=== PATIENT | male | born 1975 | race Caucasian/White ===

== ENCOUNTER 2017-01-14 10:31 | Inpatient (IN) ==
[2017-01-14] MEDS ORDERED: SODIUM CHLORIDE 0.9% 500 ML IV STA (11:00)
[2017-01-14] MEDS ORDERED: DIPH/TET/ACEL PERT BOOSTER VACCINE 0.5 ML VIAL IM ONE ×2 (11:00→11:10)
[2017-01-14] MEDS ORDERED: ceFAZolin 1,000 MG VIAL ONE (11:10)
[2017-01-14 11:33] LABS: Basophils # 0.1 10*3/uL (0.0-0.2); Basophils % 0.3 % (0.0-0.8); Eosinophils # 0.3 10*3/uL (0.0-0.87); Eosinophils % 1.8 % (0.00-10.9); Hemoglobin 13.2 GM/DL (14.0-18.0); Immature Granulocytes % 0.3 %; Immature Granulocytes Absolute 0.05 #; Lymphocytes # 1.5 10*3/uL (1.4-4.0); Lymphocytes % 10.2 % (21.2-54.2); Mean Corpuscular HGB Conc 31.4 GM/DL (32-36); Mean Corpuscular Hemoglobin 26 PG (27-34); Mean Corpuscular Volume 83.2 FL (87-102); Mean Platelet Volume 12.6 FL (9.6-12.0); Monocytes # 1.3 10*3/uL (0.11-0.8); Monocytes % 8.9 % (1.7-12.7); Neutrophils # 11.7 10*3/uL (1.4-7.4); Neutrophils % 78.5 % (38.7-73.9); Platelet Count 323 T/CUMM (130-400); Red Blood Count 5.05 MC/CUMM (3.8-5.5); Red Cell Distribution Width 16.2 % (9.3-17.3); White Blood Count 14.9 T/CUMM (4-12)
--- NOTE | 2017-01-14 11:48 | CT Report ---
Exam: CT scan of brain without contrast Date: 01/14/2017 Indication: Head injury status post fall Comparison: 12/03/2015 Patient's classification: Emergency upon Technical: Images were obtained from the skull base to the vertex without the use of intravenous contrast. Dose reduction was performed with decreasing kv and mA and automated exposure Total DLP: 1081.1 mGy*cm Findings: Minimal small vessel changes are present in the periventricular subcortical white matter regions suspected. There is slight asymmetry of the left sylvian fissure. The ventricles are otherwise unremarkable. Paranasal sinuses globes and sella are intact. The mastoids are unremarkable. There is calcification in the pineal gland present. The calvarium is intact. Impression: 1. Minimal asymmetric left sylvian fissure and possible component of mild atrophic changes 2. No acute hemorrhage infarction or mass effect PROCEDURE INTERPRETED AT [facility] DEPARTMENT OF RADIOLOGY Final Report Signed by: Dr. Ankur Esteban
--- NOTE | 2017-01-14 11:48 | CT Report ---
Exam: CT cervical spine without IV contrast Clinical History: 41 year-old male post fall with neck pain Technique: Axial computed tomography images of the cervical spine without intravenous contrast. Comparison: No relevant prior studies available. Findings: Vertebra: Cervical alignment is anatomic. The vertebral body heights are maintained with no evidence of fracture. Disc/spinal Canal/neural foramina: Disc spaces are well-maintained. Minimal facet arthrosis within the mid to lower cervical spine. No central stenosis Soft tissues: Unremarkable Thyroid: Symmetric in size and attenuation Lung apices: Well aerated Impression: 1. No evidence of injury to the cervical spine. PROCEDURE INTERPRETED AT [facility] DEPARTMENT OF RADIOLOGY Final Report Signed by: Scott Sim
--- NOTE | 2017-01-14 11:49 | XRay Report ---
Exam: XR chest 1V portable Date: 01/14/2017 11:01 AM Indication: Shortness of breath Comparison: 07/29/2016 Technical: AP Findings: Mild prominence the cardiac silhouette. Some minimal interstitial thickening the perihilar regions and slight coarse bronchovascular markings on the left as compared to the right. No obvious consolidations or effusions. Mediastinum is otherwise demonstrated with small calcified nodes. Impression: 1. Mid inspiratory chest with mild interstitial thickening without consolidating infiltrates or effusions PROCEDURE INTERPRETED AT [facility] DEPARTMENT OF RADIOLOGY Final Report Signed by: Dr. Ankur Esteban
--- NOTE | 2017-01-14 11:52 | Emergency Department Note ---
IJosiah Emily, am scribing for, and in the presence of, Fabian Rubalcava MD 11: 04. Khadar Mcfarlane Charles R, MD, personally performed the services described in this documentation, ascribed by Kathleen Rahman in my presence, and it is both accurate and complete . Arrival - Arrival Chief Complaint: Fall Stated Complaint: fall ED Nursing Triage Note: pt to er 06 via ems coming from [facility] with c/o having a fall on friday. pt never did get checked out from fall on friday but does have multiple abrasions noted to forehead. Mode of Arrival: Stretcher Limitations: Physical Limitation (bed bound; contractures in all extremities) Source: Family (mother) Time Seen by Provider: 01/14/17 10:43 - History of Present Illness HPI Narrative: Pt is a 41 y/o male who came from [facility] to ED with mother for further evaluation of vomiting and multiple abrasions s/p fall from 2 days ago. Mother notes fdc is unsure of how pt fell, but pt is not moving any extremity due to contractures. Mother reports pt having nml gait prior to August 2016 while he was in assisted living facility in [place], [place]. Then moved [facility] due to no movement of extremities, barely speaks, and now bed sores on buttocks and knees. Mother states she was told the fdc changes the wounds every two hours, per wound clinic. Mother denies hx of stroke or cerebral palsy. PMHx of schizophrenia, HTN, thyroid disorder. Onset (ago): day(s) Consistency: constant Severity: mild, moderate Severity scale (1-10): 4 Allergies/Adverse Reactions: Allergies Allergy/AdvReac Type Severity Reaction Status Date / Time haloperidol [From Haldol] Allergy Unknown Unknown/Unable Verified 01/14/17 10:37 to obtain [place] Allergy Unknown Unknown/Unable Verified 01/14/17 10:37 to obtain olanzapine [From Zyprexa] Allergy Unknown Unknown/Unable Verified 01/14/17 10:37 to obtain risperidone [From Risperdal] Allergy Unknown Unknown/Unable Verified 01/14/17 10 :37 to obtain ziprasidone [From Geodon] Allergy Unknown Unknown/Unable Verified 01/14/17 10:37 to obtain Home Medications: Home Medications Medication Instructions Recorded Confirmed Type Baclofen Tab [Lioresal] 20 mg PO TID 08/30/15 02/13/16 History Cholecalciferol (Vitamin D3) 2,000 unit PO DAILY 08/30/15 02/13/16 History [Vitamin D3] Docusate Sodium Cap [Colace Cap] 100 mg PO BID 08/30/15 02/13/16 History Omeprazole [Prilosec] 20 mg PO BID 08/30/15 02/13/16 History Polyethylene Glycol Powder 17 gm PO DAILY 08/30/15 02/13/16 History [Miralax] Propranolol Tab [Inderal Tab] 10 mg PO BID 08/30/15 02/13/16 History hydroCHLOROthiazide 12.5 mg PO DAILY 08/30/15 02/13/16 History [Hydrochlorothiazide] HYDROcodone/ACETAMIN 7.5-325 1 tablet PO Q6H PRN 02/13/16 02/13/16 History [[place] 7.5-325] clonazePAM TAB [KlonoPIN] 0.5 mg PO BEDTIME PRN 02/13/16 02/13/16 History clonazePAM [Klonopin] 1 mg PO QAM PRN 02/13/16 02/13/16 History Ampicillin Cap 500 mg PO TID #30 capsule 02/17/16 Rx HYDROcodone/ACETAMIN 7.5-325 1 tablet PO Q6H PRN #30 tablet 02/17/16 Rx [[place] 7.5-325] Ampicillin Cap 500 mg PO TID #30 capsule 07/29/16 Rx Levofloxacin Tab [Levaquin Tab] 750 mg PO DAILY 10 Days 01/14/17 Rx Review of System - Review of System 12 point system: reviewed and no additional remarkable complaints except as stated - Review of System Constitutional: Absent: fever Respiratory: Absent: respiratory distress Gastrointestinal: Present: vomiting Skin: Present: lesions (multiple abrasions to forehead). 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) - Surgical History Cardiac Surgeries: Patient Denies: Cardiac Catheterization HEENT Surgeries: Surgical HX of: Tonsilectomy & Adenoidectomy Abdominal Surgeries: Patient denies: Appendectomy, Cholecystectomy Orthopedic Surgeries: Patient denies;: Orthopedic Surgery - Family History Family History: noncontributory - Social History Smoking Status: Never smoker Frequency of Alcohol Use: None Type of Drug Use: None Marital Status: Single Lives With:: fdc Functional capacity: bed bound (due to contractures in all extremities) Exam Vital Signs: Vital Signs Temperature 98.6 F 01/14/17 10:32 Pulse Rate 85 01/14/17 10:32 Respiratory Rate 17 01/14/17 10:32 Blood Pressure 90/63 01/14/17 10:32 O2 Sat by Pulse Oximetry 97 01/14/17 11:23 - General General appearance: alert, in no apparent distress, other (mute) - Head Head exam: Present: atraumatic, normocephalic, other (abrasions to forehead) - Eye Eye exam: Present: PERRL, EOMI - ENT ENT exam: Present: mucous membranes moist. Absent: mucous membranes dry - Neck Neck exam: Present: trachea midline - Chest Chest inspection: Present: symmetric chest wall rise - Respiratory Respiratory exam: Present: normal lung sounds bilaterally. Absent: respiratory distress - Cardiovascular Cardiovascular exam: Present: regular rate, normal rhythm, normal heart sounds - Abdominal Exam Abdominal exam: Present: soft, other (rotted peg tube). Absent: distention, tenderness - Extremities Exam Extremities exam: Absent: full ROM (contractures in all extremities), pedal edema - Neurological Exam Neurological exam: Present: CN II-XII intact, other (non verbal). Absent: normal gait - Skin Skin exam: Present: warm, dry, other (bed sores on buttocks and posterior knees) Course Course Narrative: Spoke with the mother the patient. We will send him back to fdc with some p.o. Levaquin to take. Patient has a urinary tract infection there is no traumatic injuries noted on CT head CT C-spine are negative Results - Labs CBC & BMP: 01/14/17 11:05 01/14/17 11:05 Lab Results: I have reviewed the patients labs Labs: Laboratory Tests 01/14/17 11:05 WBC 14.9 H RBC 5.05 Hgb 13.2 L Hct 42.0 MCV 83.2 L MCH 26 L MCHC 31.4 L Plt Count 323 MPV 12.6 H Neut % (Auto) 78.5 H Lymph % (Auto) 10.2 L Neut # (Auto) 11.7 H Love # (Auto) 1.3 H Laboratory Tests 01/14/17 01/14/17 11:05 12:17 BUN 29 H Creatinine 0.50 L BUN/Creatinine Ratio 58.00 H Magnesium 2.5 H Albumin 3.1 L Globulin 4.4 H Albumin/Globulin Ratio 0.7 L Amylase 21 L Lipase 142.0 Urine Color [place]han Urine Appearance Cloudy Urine pH 6.0 Ur Specific [place] 1.017 Urine Protein 30 Urine Nitrate Positive H Urine Urobilinogen 4.0 H Urine Leukocytes Large H Urine RBC 28 Urine WBC 455 Urine WBC Clumps Many Urine Bacteria Few Urine Mucus Occasional - Diagnostic Findings Procedure: Chest x-ray: report reviewed by me (Mild inspiratory chest with mild interstitial thickening without consolidating infiltrates or effusions.), CT: report reviewed by me (Cervical: No evidence of injury to the cervical spine. Head wo con: 1. Minimal asymmetric left sylvian fissure and possible component of mild atrophic changes. 2. No acute hemorrhage infarction or mass effect.) Disposition Clinical Impression: History of mechanical fall, Urinary tract infection, Debility, unspecified, Contractures involving both knees, Contracture of upper arm joint, Muscle disease Case discussed with: patient, patient's family Disposition: Disch To Home/Self Care Condition: Stable Additional Instructions: Follow-up with fdc doctor. Prescriptions: Levofloxacin Tab [Levaquin Tab] 750 mg PO DAILY 10 Days Time of Disposition: 13:01 Contact your physician if you experience:: fever over 101, Difficulty voiding, Redness or swelling, Nausea/Vomiting, Shortness of breath, Bleeding, pain uncontrolled by pain medications, Other Return to the Emergency Department if:: fever over 101, Difficulty voiding, Redness or swelling, Nausea/Vomiting, Shortness of breath, Bleeding, pain uncontrolled by pain medications, Other
[2017-01-14 12:04] LABS: Albumin 3.1 G/DL (3.4-5.0); Bilirubin,Total 0.8 MG/DL (0.2-1.0); Magnesium 2.5 MG/DL (1.8-2.4); Osmolality,Calculated 281.5 MOS/KG (273-304); Potassium 4.6 MMOL/L (3.5-5.1); Total Protein 7.5 G/DL (6.4-8.3)
[2017-01-14 12:30] LABS: Apearance,Urine CLOUDY (Clear); Bacteria,Urine Few /HPF (Few); Bilirubin,Urine Negative (Negative); Blood, Urine Negative (Negative); Glucose,Urine (UA) Negative (Negative); Ketones,Urine Negative (Negative); Mucus,Urine Occasional /LPF (Occasional); Nitrite,Urine Positive (Negative); Protein,Urine 30 MG/DL; RBC,Urine 28 /HPF (0-4); Urine Color Amber (Yellow); Urine Specific Gravity 1.017 (1.001-1.035); WBC,Urine 455 /HPF (0-6)
[2017-01-14] MEDS ORDERED: LEVOFLOXACIN INJ 750 MG in PREMIX 1 EACH IV STA (12:52)
[2017-01-14] MEDS ORDERED: LEVOFLOXACIN INJ 150 ML IV ONE (12:58)
[2017-01-14] MEDS ORDERED: ONDANSETRON 4 MG/2 ML VIAL IV STA (13:33)
[2017-01-14] MEDS ORDERED: ONDANSETRON 4 MG/2 ML VIAL ONE (13:35)
--- NOTE | 2017-01-14 14:32 | Hospitalist History & Physical ---
Assessment and Plan - Time spent with patient Time spent with patient: Greater than 30 minutes (1) Urinary tract infection Status: Acute Assessment and plan: Admit 01/14/17 on monitor Start IV hydration Start Antibiotics (UTI) repeat a.m. labs PRN antiemetics Urine culture is ordered will consult wound care evaluation Will discuss with Dr Ackerman for further recommendations with care. Current Visit: Yes (2) Contracture of upper arm joint Status: Acute Current Visit: Yes (3) Contractures involving both knees Status: Acute Current Visit: Yes (4) Altered mental status Status: Acute Current Visit: No History of Present Illness Chief complaint: n/v and UTI History of present illness: Mr. Zuñiga is a 41 year old white male w/PMHx of [place], hypertension, schizophrenia, thyroid disorder, and all extremities contracted presented to the ED via EMS from [facility] for further evaluation of nausea, vomiting this a.m. and s/p fell out of bed 2 days ago. Patient is MUTE and mother (Soo) at bedside and was able to answer some questions but for the most part a poor historian. She reports patient has been at [facility] since last August. She is unsure what happened to cause him to not speak at all and became weak in all his extremities and is now bed bound and contracted in all extremities. She denies that he had a stroke, or seizures prior to moving him to the shelter. Patient is in contracted state and she reports the staff were unsure how the patient fell from the bed. He has multiple abrasions to forehead. He has bed sores to buttocks and knees and had wound care at the [facility]. [place] ED: Cervical CT Spine: no evidence of injury to the cervical spine. CXR: mid inspiratory chest with mild interstitial thickening without consolidating infiltrates or effusions. Head CT : minimal asymmetric left sylvian fissure and possibel component of mild atrophic changes, no acute hemorrhage infarction or mass. LABS: WBC 14.9, BUN 29, Creatinine 0.50, Magnesium 2.5. Urinalysis: positive for UTI: positive nitrates, large leukocytes, WBC 455, with many clumps. Patient is bed bound: contractures to all extremities PCP: Practitioner at [facility] After discussion with Dr Rubalcava in the ED and Dr Meka with Hospitalist Services, it was agreed to admit patient for further evaluation of nausea/ vomiting and urinary tract infection. Home Medications Medication Instructions Recorded Confirmed Type Baclofen Tab [Lioresal] 20 mg PO TID 08/30/15 01/14/17 History Cholecalciferol (Vitamin D3) 2,000 unit PO DAILY 08/30/15 01/14/17 History [Vitamin D3] Polyethylene Glycol Powder 17 gm PO DAILY PRN 08/30/15 01/14/17 History [Miralax] Propranolol Tab [Inderal Tab] 10 mg PO BID 08/30/15 01/14/17 History hydroCHLOROthiazide 12.5 mg PO DAILY 08/30/15 01/14/17 History [Hydrochlorothiazide] clonazePAM TAB [KlonoPIN] 0.5 mg PO BEDTIME PRN 02/13/16 01/14/17 History clonazePAM [Klonopin] 1 mg PO QAM 02/13/16 01/14/17 History Acetaminophen Supp [Tylenol Supp] 650 mg RECTAL Q4H PRN MDD 3GM/24H 01/14/1709/25 History Clotrimazole/Betameth Cream 1 applic TOP BID PRN 01/14/17 01/14/17 History [Lotrisone Cream] Docusate Sodium Liquid [Colace 100 mg PO BID 01/14/17 01/14/17 History Liquid] Esomeprazole Magnesium 20 mg PO 0600 01/14/17 01/14/17 History [Esomeprazole] HYDROcodone/ACETAMIN 7.5-325 1 tablet PEG Q6H PRN 01/14/17 01/14/17 History [[place] 7.5-325] Levofloxacin Tab [Levaquin Tab] 750 mg PO DAILY 10 Days 01/14/17 Rx Loperamide Cap [Imodium Cap] 2 mg PEG Q2HR PRN MDD 16MG/24H 01/14/17 01/14/17 History Ondansetron Tab [Zofran Tab] 4 mg PO Q8H PRN 01/14/17 01/14/17 History Allergies Allergy/AdvReac Type Severity Reaction Status Date / Time haloperidol [From Haldol] Allergy Unknown Unknown/Unable Verified 01/14/17 10:37 to obtain [place] Allergy Unknown Unknown/Unable Verified 01/14/17 10:37 to obtain olanzapine [From Zyprexa] Allergy Unknown Unknown/Unable Verified 01/14/17 10:37 to obtain risperidone [From Risperdal] Allergy Unknown Unknown/Unable Verified 01/14/17 10 :37 to obtain ziprasidone [From Geodon] Allergy Unknown Unknown/Unable Verified 01/14/17 10:37 to obtain Medical,Surgical,& Family Hx - Medical History Cardio: History of: Hypertension Psychological: History of: Schizophrenia Endocrine: History of: Thyroid Disorder No history of: Diabetes Mellitus (IDDM) Genitourinary: No history of: Kidney Stones Musculoskeletal: History of: Musculoskeletal Problems (CONTRACTURES) Other: History of: 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) - Surgical History Cardiac Surgeries: Patient Denies: Cardiac Catheterization HEENT Surgeries: Surgical HX of: Tonsilectomy & Adenoidectomy Abdominal Surgeries: Patient denies: Appendectomy, Cholecystectomy Orthopedic Surgeries: Patient denies;: Orthopedic Surgery - Social History Smoking Status: Never smoker Frequency of Alcohol Use: None Type of Drug Use: None Marital Status: Single Lives With:: lives at [facility] Functional capacity: bed bound (contracted) ROS unobtainable: other Review of systems: Unable to assess: Patient is MUTE and will only stare when asked questions. Mother at bedside and a poor historian of symptoms of present illness. She does report the staff told her the patient fell out of the bed Friday, patient is bed bound and severely contracted, unsure how he fell from bed. Exam - Constitutional Vitals: Period Temp Pulse Resp BP Sys/Lee Pulse Ox Last 24 Hr 98.6 F-98.6 F 85-85 - 90-90/63-63 95-97 General appearance: normal weight, no acute distress - Head Head exam: Present: abrasion (to forehead (fell out of bed on Friday)) - Eye Eye exam: Present: EOMI Pupils: Present: FLAQUITO - Neck Neck exam: Present: normal inspection. Absent: thyromegaly - Respiratory Respiratory exam: Present: clear to auscultation bilaterally. Absent: wheezes - Cardiovascular Cardiovascular exam: Present: regular rate and rhythm - GI/Abdominal GI/Abdominal exam: Present: normal bowel sounds, soft. Absent: distended, tenderness - Extremities Exam Extremities exam: Present: other (contracted in all extremities). Absent: edema - Neurological Exam Neurological exam: Present: alert, other (non-verbal) - Skin Skin exam: Present: normal color, warm, abrasion (multiple abrasions r/t fell from bed on Friday at the shelter), dry Results - Labs CBC & BMP: 01/14/17 11:05 01/14/17 11:05 Lab Results: I have reviewed the past 24 hour labs - Diagnostic Findings Procedure: Chest x-ray: report reviewed by me (mid inspiratory chest with mild interstitial thickening without consolidating infiltrates or effusions), CT: report reviewed by me (cervical: negative; HeadCT: nothing acute, minimal asymmetric left sylvian fissure and possible component of mild atrophic changes)
[2017-01-14] MEDS ORDERED: CLOTRIMAZOLE/BETAMETHASONE CREAM 15 GM TUBE TOP PRN (15:50)
[2017-01-14] MEDS ORDERED: LOPERAMIDE 2 MG CAPSULE PEG PRN (15:50)
[2017-01-14] MEDS ORDERED: POLYETHYLENE GLYCOL POWDER 17 GM PACK PO PRN (15:50)
[2017-01-14] MEDS ORDERED: ONDANSETRON 4 MG/2 ML VIAL IV PRN (15:50)
--- NOTE | 2017-01-14 17:39 | Gastrointestinal Consult Note ---
Assessment and Plan (1) Dysphagia as late effect of cerebrovascular disease Status: Acute Assessment and plan: This patient has a history of severe schizophrenia and also may have a neuromuscular degenerative disorder at that resulted in contractures of all of his limbs at this point. He had an initial PEG tube placed back in August 2015 and now this PEG tube is reached the end of its functional life, as he is not on any anticoagulation will replace this afternoon n.p.o. And place a new inflatable PEG tube that can be removed/replaced more easily in the future. We will have the patient presented to the GI suite tomorrow for replacement. Current Visit: Yes (2) Attention to gastrostomy tube Status: Acute Assessment and plan: There is nothing completely wrong with this PEG tube indeed it might last for another month or 2 if left on its own however the patient is here in the hospital and we can certainly replace this proactively at this point to keep him from having to come back during weekend and late hours for replacement. He is off anticoagulation at this time and is under going treatment for his underlying urinary tract infection and decubitus ulcer treatments as well. This is a good time to optimize his feeding regimen and consider doing a repeat swallowing study to ensure that he is not having dysphagia with clear liquids being given to him presently by his mother and the staff at [facility]. Current Visit: Yes (3) Mild malnutrition Status: Acute Assessment and plan: The patient currently has an albumin of 3.1, but he still has a very low BMI and is experiencing multiple decubitus ulcers. His feeding regimen could certainly stand higher caloric intake and optimization in general. It may be worth having speech pathology and dietary consult on this patient to see if there is anything further that they wish to add at this point. If the dysphagia evaluation shows the patient does not require PEG tube support perhaps this can be removed at some point in the future, provided he is taking all of his calories, medications, and hydration orally. Current Visit: Yes History of Present Illness Chief complaint: Failing PEG tube History of present illness: Mr. Zuñiga is a 41 year old male who has a history of schizophrenia, hypertension, thyroid disorder who is new to with a mother who is at the bedside and knows that his previous PEG tube was placed in August 2015. The rubber in the PEG tube is about to fail and has routed to a significant degree as this was placed in August 2015. They are asking to be replaced with a inflatable PEG tube prior to going back to [facility]. He is now bedbound and with decubitus over multiple areas of his body. The patient 's mother states that he can drink clear liquids but has not been to undergo a swallowing study recently. This might be something to think about for reassessment during this hospitalization. The patient has urinary tract infection and needed evaluation for nausea and vomiting--although in retrospect this may certainly be due to urinary tract infection with high white blood cell count of 14.9 and possibly infection of his decubitus ulcers. It does not appear to be wincing at all on palpation of his abdomen and his PEG tube site actually looks quite good aside from a decayed rubber. Rectal exam was not performed on this patient. His hematocrit is normal at 42.0 with platelet count of 323. It is difficult to tell how much the patient comprehends as he does not react to questions even in terms of blinking or following any commands. Home Medications Medication Instructions Recorded Confirmed Type Baclofen Tab [Lioresal] 20 mg PEG TID 08/30/15 01/14/17 History Cholecalciferol (Vitamin D3) 2,000 unit PEG DAILY 08/30/15 01/14/17 History [Vitamin D3] Polyethylene Glycol Powder 17 gm PEG DAILY PRN 08/30/15 01/14/17 History [Miralax] Propranolol Tab [Inderal Tab] 10 mg PEG BID 08/30/15 01/14/17 History hydroCHLOROthiazide 12.5 mg PEG DAILY 08/30/15 01/14/17 History [Hydrochlorothiazide] clonazePAM TAB [KlonoPIN] 0.5 mg PEG BEDTIME PRN 02/13/16 01/14/17 History clonazePAM [Klonopin] 1 mg PEG QAM 02/13/16 01/14/17 History Acetaminophen Supp [Tylenol Supp] 650 mg RECTAL Q4H PRN MDD 3GM/24H 01/14/1709/25 History Clotrimazole/Betameth Cream 1 applic TOP BID PRN 01/14/17 01/14/17 History [Lotrisone Cream] Docusate Sodium Liquid [Colace 100 mg PEG BID 01/14/17 01/14/17 History Liquid] Esomeprazole Magnesium 20 mg PEG 0600 01/14/17 01/14/17 History [Esomeprazole] HYDROcodone/ACETAMIN 7.5-325 1 tablet PEG Q6H PRN 01/14/17 01/14/17 History [[place] 7.5-325] Loperamide Cap [Imodium Cap] 2 mg PEG Q2HR PRN MDD 16MG/24H 01/14/17 01/14/17 History Ondansetron Tab [Zofran Tab] 4 mg PEG Q8H PRN 01/14/17 01/14/17 History Selenium Sulfide [Selenium Sulfide 1 applic TOP DIRECTED 01/14/17 01/14/17 History 2.25% Shampoo] Allergies Allergy/AdvReac Type Severity Reaction Status Date / Time haloperidol [From Haldol] Allergy Unknown Unknown/Unable Verified 01/14/17 10:37 to obtain [place] Allergy Unknown Unknown/Unable Verified 01/14/17 10:37 to obtain olanzapine [From Zyprexa] Allergy Unknown Unknown/Unable Verified 01/14/17 10:37 to obtain risperidone [From Risperdal] Allergy Unknown Unknown/Unable Verified 01/14/17 10 :37 to obtain ziprasidone [From Geodon] Allergy Unknown Unknown/Unable Verified 01/14/17 10:37 to obtain Medical,Surgical,& Family Hx - Medical History Cardio: History of: Hypertension Psychological: History of: Schizophrenia Endocrine: History of: Thyroid Disorder No history of: Diabetes Mellitus (IDDM) Genitourinary: No history of: Kidney Stones Musculoskeletal: History of: Musculoskeletal Problems (CONTRACTURES upper and lower extremities) Other: History of: 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 His mother states that he can swallow clear liquids to some degree. Exam - Constitutional Vitals: Period Temp Pulse Resp BP Sys/Lee Pulse Ox Last 24 Hr 98.6 F-99.0 F 85-104 17-20 90-110/63-65 95-97 General appearance: mild distress - Head Head exam: Present: normocephalic - Eye Eye exam: Present: EOMI Pupils: Present: FLAQUITO - Respiratory Respiratory exam: Present: clear to auscultation bilaterally. Absent: rhonchi, stridor, wheezes - Cardiovascular Cardiovascular exam: Present: regular rate and rhythm - GI/Abdominal GI/Abdominal exam: Present: normal bowel sounds, soft, other (PEG tube site in the left upper quadrant is clean and dry with small amount of "proud flesh"/ granulation tissue at the opening of the gastrocutaneous fistula, the rubber is degraded in the tube itself but appears to be maintaining patency). Absent: guarding, tenderness - Extremities Exam Extremities exam: Present: other (Multiple decubitus noted on the patient's left side mostly on the sacrum or deep lesion is noted) - Neurological Exam Neurological exam: Present: altered (Patient is awake but noncommunicative and does not follow commands.) - Psychiatric Psychiatric exam: Present: flat affect - Skin Skin exam: Present: warm Results - Labs CBC & BMP: 01/14/17 11:05 01/14/17 11:05 Quality Measures - Stroke Symptom Onset Unknown: No
[2017-01-14] MEDS: SODIUM CHLORIDE 0.9% 1,000 ML IV SCH (17:51)
[2017-01-14] MEDS: cefTRIAXone 2,000 MG in SODIUM CHLORIDE 0.9% 100 ML IV SCH (17:52)
[2017-01-14] MEDS: BACLOFEN 20 MG TABLET PO SCH ×2 (17:55→22:07)
[2017-01-14] MEDS: ENOXAPARIN 40 MG/0.4 ML SYRINGE SUBCUT SCH (18:03)
[2017-01-14] MEDS: PROPRANOLOL 10 MG TABLET PO SCH (22:07)
[2017-01-14] MEDS: DOCUSATE SODIUM 100 MG/10 ML UDCUP PO SCH (22:08)
[2017-01-15] MEDS: SODIUM CHLORIDE 0.9% 1,000 ML IV SCH ×3 (01:51→16:21)
[2017-01-15 06:30] LABS: Albumin 2.7 G/DL (3.4-5.0); Bilirubin,Total 0.9 MG/DL (0.2-1.0); Calcium 8.6 MG/DL (8.5-10.1); Osmolality,Calculated 288.8 MOS/KG (273-304); Thyroid Stimulating Hormone 1.22 uIU/ml (0.358-3.74); Total Protein 6.5 G/DL (6.4-8.3)
[2017-01-15 07:32] LABS: Basophils % 0.4 % (0.0-0.8); Eosinophils # 0.2 10*3/uL (0.0-0.87); Eosinophils % 1.7 % (0.00-10.9); Hematocrit 38.2 VOL% (42.0-52.0); Hemoglobin 11.9 GM/DL (14.0-18.0); Immature Granulocytes % 0.4 %; Immature Granulocytes Absolute 0.04 #; Lymphocytes # 1.7 10*3/uL (1.4-4.0); Lymphocytes % 15.9 % (21.2-54.2); Mean Corpuscular HGB Conc 31.2 GM/DL (32-36); Mean Corpuscular Hemoglobin 26 PG (27-34); Mean Corpuscular Volume 84.5 FL (87-102); Mean Platelet Volume 13.1 FL (9.6-12.0); Monocytes % 9.4 % (1.7-12.7); Neutrophils # 7.8 10*3/uL (1.4-7.4); Neutrophils % 72.2 % (38.7-73.9); Platelet Count 297 T/CUMM (130-400); Red Blood Count 4.52 MC/CUMM (3.8-5.5); Red Cell Distribution Width 16.2 % (9.3-17.3); White Blood Count 10.7 T/CUMM (4-12)
--- NOTE | 2017-01-15 09:23 | Hospitalist Progress Note ---
Assessment and Plan (1) Attention to gastrostomy tube Status: Acute Assessment and plan: The patient was evaluated by GI on yesterday. We appreciate the input. We agree with the plan for G-tube placement this a.m. Current Visit: Yes (2) Urinary tract infection Status: Acute Assessment and plan: We will continue antibiotic coverage as previously ordered. We will await culture sensitivity report for further direction. Current Visit: Yes Hospitalist: Subjective Interval history: Patient seen and examined, chart reviewed. No significant overnight events reported per staff. Seen by GI on yesterday. We appreciate the input and agree with plan for G-tube placement this a.m. Exam - Constitutional Vitals: Period Temp Pulse Resp BP Sys/Lee Pulse Ox Last 24 Hr 96.8 F-99.8 F 85-117 16-22 90-144/55-82 90-97 General appearance: normal weight - Head Head exam: Present: normal inspection, normocephalic, abrasion - Eye Eye exam: Present: EOMI. Absent: conjunctival injection Pupils: Present: FLAQUITO, normal accommodation - ENT ENT exam: Present: normal exam, normal external ear exam - Neck Neck exam: Present: normal inspection. Absent: lymphadenopathy, meningismus, tenderness, thyromegaly - Respiratory Respiratory exam: Present: clear to auscultation bilaterally. Absent: rales, rhonchi, stridor, wheezes - Cardiovascular Cardiovascular exam: Present: regular rate and rhythm. Absent: carotid bruit, diastolic murmur, gallop, JVD, rubs, systolic murmur - GI/Abdominal GI/Abdominal exam: Present: normal bowel sounds, soft - Extremities Exam Extremities exam: Present: other (Contractures to bilateral upper and lower extremities) - Back Exam Back exam: Present: normal inspection - Neurological Exam Neurological exam: Present: alert, other (Nonverbal) - Psychiatric Psychiatric exam: Present: normal affect - Skin Skin exam: Present: normal color, warm, dry, other (Multiple abrasions noted to the face and head) Results - Labs CBC & BMP: 01/15/17 04:30 01/15/17 04:30 Lab Results: I have reviewed the past 24 hour labs Quality Measures - Stroke Symptom Onset Unknown: No
[2017-01-15] MEDS: ACETAMINOPHEN 650 MG SUPP RECTAL PRN ×3 (11:37→22:05)
--- NOTE | 2017-01-15 12:37 | History and Physical Update ---
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 His current tube is deteriorating externally and we are asked to replace it. His previous PEG was placed in 08/25.
--- NOTE | 2017-01-15 12:39 | Operative Note ---
Date of procedure: 01/15/17 Pre-op diagnosis: Deteriorating PEG tube Procedure: Procedure: Non-endoscopic PEG tube replacement Brief clinical abstract: Patient is a 41-year-old male with history of schizophrenia and apparent neuromuscular disease. He is unable to eat and requires PEG tube feedings for nutritional support. His PEG tube was placed in 08/25 and is deteriorating externally. Procedure findings: After informed consent was obtained from family, patient was placed in the supine position. Older PEG tube was removed with external traction without difficulty with the internal bumper intact. Cook 20 [place] replacement gastrostomy tube was then inserted through the existing gastrostomy tract. Gastric juice aspirated into the tube indicating correct placement location. 20 cc of sterile saline was injected into the internal balloon of the tube. External bumper was then applied at the skin surface at the 4 cm moses. Dressing was applied to the site afterwards. He appeared to tolerate the procedure well. Impression: Status post non-endoscopic PEG tube replacement Recommendations: May resume tube feedings as previous. Anesthesia: none Surgeon / Physician: Ankur Goldberg Estimated blood loss: minimal Specimens: none sent Condition: stable Disposition: post procedure unit Results - Labs CBC & BMP: 01/15/17 04:30 01/15/17 04:30 Discharge Plan - Discharge Medications No Action Polyethylene Glycol Powder [Miralax] 17 gm PEG DAILY PRN PRN Reason: Constipation hydroCHLOROthiazide [Hydrochlorothiazide] 12.5 mg PEG DAILY Cholecalciferol (Vitamin D3) [Vitamin D3] 2,000 unit PEG DAILY Baclofen Tab [Lioresal] 20 mg PEG TID Propranolol Tab [Inderal Tab] 10 mg PEG BID clonazePAM [Klonopin] 1 mg PEG QAM clonazePAM TAB [KlonoPIN] 0.5 mg PEG BEDTIME PRN PRN Reason: Anxiety Clotrimazole/Betameth Cream [Lotrisone Cream] 1 applic TOP BID PRN PRN Reason: RASH ON FACE Esomeprazole Magnesium [Esomeprazole] 20 mg PEG 0600 Ondansetron Tab [Zofran Tab] 4 mg PEG Q8H PRN PRN Reason: Nausea/Vomiting HYDROcodone/ACETAMIN 7.5-325 [[place] 7.5-325] 1 tablet PEG Q6H PRN PRN Reason: Pain Selenium Sulfide [Selenium Sulfide 2.25% Shampoo] 1 applic TOP DIRECTED Acetaminophen Supp [Tylenol Supp] 650 mg RECTAL Q4H PRN MDD 3GM/24H PRN Reason: Fever > 100.4 Or Headache Docusate Sodium Liquid [Colace Liquid] 100 mg PEG BID Loperamide Cap [Imodium Cap] 2 mg PEG Q2HR PRN MDD 16MG/24H PRN Reason: Diarrhea - Follow Up or Referral - Forms/Instructions
[2017-01-15] MEDS ORDERED: GLUCAGON 1 MG VIAL IM PRN (15:34)
[2017-01-15] MEDS ORDERED: DEXTROSE 50% 25 GM/50 ML SYRINGE IV PRN (15:34)
[2017-01-15] MEDS: hydroCHLOROthiazide 12.5 MG CAPSULE PO SCH (15:43)
[2017-01-15] MEDS: clonazePAM 0.5 MG TABLET PO SCH (15:43)
[2017-01-15] MEDS: PANTOPRAZOLE 40 MG TABLET PO SCH (15:43)
[2017-01-15] MEDS: CHOLECALCIFEROL 1,000 UNIT TABLET PO SCH (15:43)
[2017-01-15] MEDS: DOCUSATE SODIUM 100 MG/10 ML UDCUP PO SCH ×2 (15:43→22:05)
[2017-01-15] MEDS: PROPRANOLOL 10 MG TABLET PO SCH ×2 (15:44→22:05)
[2017-01-15] MEDS: BACLOFEN 20 MG TABLET PO SCH ×3 (15:44→22:05)
[2017-01-15] MEDS: ENOXAPARIN 40 MG/0.4 ML SYRINGE SUBCUT SCH (16:15)
[2017-01-15] MEDS: cefTRIAXone 2,000 MG in SODIUM CHLORIDE 0.9% 100 ML IV SCH (16:22)
[2017-01-15] MEDS: clonazePAM 0.5 MG TABLET PO PRN (22:05)
[2017-01-16] MEDS: SODIUM CHLORIDE 0.9% 1,000 ML IV SCH ×3 (00:57→22:30)
[2017-01-16 08:09] LABS: Basophils % 0.5 % (0.0-0.8); Eosinophils # 0.1 10*3/uL (0.0-0.87); Eosinophils % 1.6 % (0.00-10.9); Hematocrit 33.2 VOL% (42.0-52.0); Hemoglobin 10.3 GM/DL (14.0-18.0); Immature Granulocytes % 0.2 %; Immature Granulocytes Absolute 0.02 #; Lymphocytes # 1.2 10*3/uL (1.4-4.0); Lymphocytes % 14.2 % (21.2-54.2); Mean Corpuscular Hemoglobin 26 PG (27-34); Mean Corpuscular Volume 84.7 FL (87-102); Mean Platelet Volume 12.3 FL (9.6-12.0); Monocytes # 0.8 10*3/uL (0.11-0.8); Monocytes % 9.3 % (1.7-12.7); Neutrophils # 6.2 10*3/uL (1.4-7.4); Neutrophils % 74.2 % (38.7-73.9); Platelet Count 275 T/CUMM (130-400); Red Blood Count 3.92 MC/CUMM (3.8-5.5); Red Cell Distribution Width 15.9 % (9.3-17.3); White Blood Count 8.3 T/CUMM (4-12)
[2017-01-16 08:46] LABS: Albumin 2.6 G/DL (3.4-5.0); Magnesium 1.9 MG/DL (1.8-2.4); Osmolality,Calculated 289.8 MOS/KG (273-304); Potassium 3.5 MMOL/L (3.5-5.1); Total Protein 5.9 G/DL (6.4-8.3)
--- NOTE | 2017-01-16 09:12 | Gastrointestinal Progress Note ---
Assessment and Plan (1) Dysphagia as late effect of cerebrovascular disease Status: Acute Assessment and plan: 01/16-post PEG replacement on yesterday, no complications at this time. Tolerating tube feedings well. Plan an addendum to followed by Dr. Goldberg. Current Visit: Yes Gastroenterology - PN: Subj Interval history: CC: Dysphagia, PEG replacement Patient is seen, with eyes opened however does not respond verbally. Mother is at bedside. Patient underwent PEG replacement on yesterday and he tolerated this well. He does not seem to have any pain with examination and there is no redness or drainage noted at PEG tube site. Tube feedings were restarted on yesterday evening and he is tolerating this well with no reports of high residuals. Abdomen is soft, nontender. ROS: No acute distress noted Exam (Progress Note) - Constitutional Vitals: Period Temp Pulse Resp BP Sys/Lee Pulse Ox Last 24 Hr 98.3 F-100.6 F 80-132 18-20 93-135/57-079 92-96 General appearance: normal weight, no acute distress - Head Head exam: Present: normal inspection - Eye Eye exam: Present: other (Lids and conjunctive are unremarkable). Absent: scleral icterus - ENT ENT exam: Present: normal exam, normal oropharynx - Neck Neck exam: Present: normal inspection - Respiratory Respiratory exam: Present: clear to auscultation bilaterally. Absent: rales, rhonchi, wheezes - Cardiovascular Cardiovascular exam: Present: regular rate and rhythm. Absent: diastolic murmur , systolic murmur - GI/Abdominal GI/Abdominal exam: Present: normal bowel sounds, soft. Absent: ascites, distended, mass, organomegaly, tenderness - Extremities Exam Extremities exam: Present: normal inspection, full ROM - Back Exam Back exam: Present: normal inspection - Neurological Exam Neurological exam: Present: alert, altered - Psychiatric Psychiatric exam: Present: other - Skin Skin exam: Present: normal color, warm, dry Results - Labs CBC & BMP: 01/16/17 07:49 01/16/17 07:49 Lab Results: I have reviewed the past 24 hour labs
[2017-01-16] MEDS: BACLOFEN 20 MG TABLET PO SCH ×3 (09:28→22:30)
[2017-01-16] MEDS: hydroCHLOROthiazide 12.5 MG CAPSULE PO SCH (09:28)
[2017-01-16] MEDS: DOCUSATE SODIUM 100 MG/10 ML UDCUP PO SCH ×2 (09:28→22:30)
[2017-01-16] MEDS: PROPRANOLOL 10 MG TABLET PO SCH ×2 (09:28→22:30)
[2017-01-16] MEDS: PANTOPRAZOLE 40 MG TABLET PO SCH (09:28)
[2017-01-16] MEDS: CHOLECALCIFEROL 1,000 UNIT TABLET PO SCH (09:28)
[2017-01-16] MEDS: clonazePAM 0.5 MG TABLET PO SCH (09:28)
--- NOTE | 2017-01-16 09:51 | Hospitalist Progress Note ---
Assessment and Plan (1) Attention to gastrostomy tube Status: Acute Assessment and plan: The patient was evaluated by GI on yesterday. We appreciate the input. We agree with the plan for G-tube placement this a.m. 01/16-PEG tube removed on yesterday with subsequent G-tube placement. Enteral feedings have been resumed. The patient has tolerated well thus far. We will continue to monitor. Current Visit: Yes (2) Urinary tract infection Status: Acute Assessment and plan: We will continue antibiotic coverage as previously ordered. We will await culture sensitivity report for further direction. 01/16-urine culture preliminary report significant for gram-negative rods. We will await culture and sensitivity report. We will continue antibiotic coverage as previously ordered. Current Visit: Yes Hospitalist: Subjective Interval history: Patient seen and examined; chart reviewed. No significant overnight events reported. G-tube placed on yesterday per gastroenterology. Enteral feedings have been resumed. Exam - Constitutional Vitals: Period Temp Pulse Resp BP Sys/Lee Pulse Ox Last 24 Hr 98.3 F-100.6 F 80-132 18-20 93-135/57-079 92-96 General appearance: normal weight, no acute distress - Head Head exam: Present: normal inspection, normocephalic, abrasion - Eye Eye exam: Present: EOMI, conjunctival injection Pupils: Present: FLAQUITO, normal accommodation - ENT ENT exam: Present: normal exam, normal external ear exam, normal oropharynx - Neck Neck exam: Present: normal inspection. Absent: lymphadenopathy, meningismus, tenderness, thyromegaly - Respiratory Respiratory exam: Present: clear to auscultation bilaterally. Absent: rales, rhonchi, stridor, wheezes - Cardiovascular Cardiovascular exam: Present: regular rate and rhythm. Absent: carotid bruit, diastolic murmur, gallop, JVD, rubs, systolic murmur - GI/Abdominal GI/Abdominal exam: Present: normal bowel sounds, soft, other (Chest 2 patent and intact intravenous drug) - Extremities Exam Extremities exam: Present: other (Contractures noted to bilateral upper and lower extremities). Absent: full ROM (Contractions noted to bilateral upper and lower extremeties) - Back Exam Back exam: Present: normal inspection - Neurological Exam Neurological exam: Present: alert - Psychiatric Psychiatric exam: Present: normal affect - Skin Skin exam: Present: normal color, warm, dry Results - Labs CBC & BMP: 01/16/17 07:49 01/16/17 07:49 Quality Measures - Stroke Symptom Onset Unknown: No
[2017-01-16] MEDS: ENOXAPARIN 40 MG/0.4 ML SYRINGE SUBCUT SCH (17:14)
[2017-01-16] MEDS: cefTRIAXone 2,000 MG in SODIUM CHLORIDE 0.9% 100 ML IV SCH (17:14)
[2017-01-16] MEDS: clonazePAM 0.5 MG TABLET PO PRN (22:30)
[2017-01-17] MEDS: SODIUM CHLORIDE 0.9% 1,000 ML IV SCH ×4 (06:38→22:20)
[2017-01-17 06:45] LABS: Basophils % 0.6 % (0.0-0.8); Eosinophils # 0.2 10*3/uL (0.0-0.87); Eosinophils % 3.1 % (0.00-10.9); Hematocrit 35.4 VOL% (42.0-52.0); Hemoglobin 11.1 GM/DL (14.0-18.0); Immature Granulocytes % 0.2 %; Immature Granulocytes Absolute 0.01 #; Lymphocytes # 1.4 10*3/uL (1.4-4.0); Lymphocytes % 21.2 % (21.2-54.2); Mean Corpuscular HGB Conc 31.4 GM/DL (32-36); Mean Corpuscular Hemoglobin 26 PG (27-34); Mean Corpuscular Volume 83.5 FL (87-102); Mean Platelet Volume 13.1 FL (9.6-12.0); Monocytes # 0.6 10*3/uL (0.11-0.8); Monocytes % 9.5 % (1.7-12.7); Neutrophils # 4.2 10*3/uL (1.4-7.4); Neutrophils % 65.4 % (38.7-73.9); Platelet Count 290 T/CUMM (130-400); Red Blood Count 4.24 MC/CUMM (3.8-5.5); Red Cell Distribution Width 15.9 % (9.3-17.3); White Blood Count 6.4 T/CUMM (4-12)
[2017-01-17 07:27] LABS: Albumin 2.7 G/DL (3.4-5.0); Bilirubin,Total 0.4 MG/DL (0.2-1.0); Calcium 8.1 MG/DL (8.5-10.1); Magnesium 2.2 MG/DL (1.8-2.4); Phosphorous 2.8 MG/DL (2.5-4.9); Potassium 3.5 MMOL/L (3.5-5.1); Total Protein 6.2 G/DL (6.4-8.3)
[2017-01-17] MEDS: BACLOFEN 20 MG TABLET PO SCH ×3 (08:04→22:25)
[2017-01-17] MEDS: clonazePAM 0.5 MG TABLET PO SCH (08:04)
[2017-01-17] MEDS: CHOLECALCIFEROL 1,000 UNIT TABLET PO SCH (08:04)
[2017-01-17] MEDS: hydroCHLOROthiazide 12.5 MG CAPSULE PO SCH (08:04)
[2017-01-17] MEDS: PANTOPRAZOLE 40 MG TABLET PO SCH (08:04)
[2017-01-17] MEDS: PROPRANOLOL 10 MG TABLET PO SCH ×2 (08:04→22:25)
[2017-01-17] MEDS: DOCUSATE SODIUM 100 MG/10 ML UDCUP PO SCH ×2 (08:04→22:25)
--- NOTE | 2017-01-17 09:00 | Hospitalist Progress Note ---
Assessment and Plan (1) Attention to gastrostomy tube Status: Acute Assessment and plan: The patient was evaluated by GI on yesterday. We appreciate the input. We agree with the plan for G-tube placement this a.m. 01/16-PEG tube removed on yesterday with subsequent G-tube placement. Enteral feedings have been resumed. The patient has tolerated well thus far. We will continue to monitor. 01/17-Enteral feedings in progress. Current Visit: Yes (2) Urinary tract infection Status: Acute Assessment and plan: We will continue antibiotic coverage as previously ordered. We will await culture sensitivity report for further direction. 01/16-urine culture preliminary report significant for gram-negative rods. We will await culture and sensitivity report. We will continue antibiotic coverage as previously ordered. 01/17-awaiting culture and sensitivity report. We will continue antibiotic coverage as previously ordered. Current Visit: Yes Hospitalist: Subjective Interval history: Patient seen and examined; chart review. No significant overnight events reported per staff. Preliminary urine culture sensitivity significant for gram- negative rods; we will await culture sensitivity for further direction. Exam - Constitutional Vitals: Period Temp Pulse Resp BP Sys/Lee Pulse Ox Last 24 Hr 97.2 F-100.4 F 81-96 18-22 98-118/62-77 93-95 General appearance: normal weight, no acute distress - Head Head exam: Present: normocephalic, atraumatic, abrasion - Eye Eye exam: Present: EOMI, conjunctival injection Pupils: Present: FLAQUITO, normal accommodation - ENT ENT exam: Present: normal exam, normal external ear exam, normal oropharynx - Neck Neck exam: Present: normal inspection. Absent: lymphadenopathy, meningismus, thyromegaly - Respiratory Respiratory exam: Present: clear to auscultation bilaterally. Absent: rales, rhonchi, stridor, wheezes - Cardiovascular Cardiovascular exam: Present: regular rate and rhythm. Absent: carotid bruit, diastolic murmur, gallop, JVD, rubs, systolic murmur - GI/Abdominal GI/Abdominal exam: Present: normal bowel sounds, soft, other (NG tube patent and intact) - Extremities Exam Extremities exam: Present: normal capillary refill, full ROM (Bilateral upper and lower extremity contractures appreciated). Absent: edema - Back Exam Back exam: Present: normal inspection - Neurological Exam Neurological exam: Present: alert, altered, other - Psychiatric Psychiatric exam: Present: normal affect - Skin Skin exam: Present: normal color, warm, dry Results - Labs CBC & BMP: 01/17/17 05:02 01/17/17 05:02 Lab Results: I have reviewed the past 24 hour labs Quality Measures - Stroke Symptom Onset Unknown: No
[2017-01-17] MEDS: cefTRIAXone 2,000 MG in SODIUM CHLORIDE 0.9% 100 ML IV SCH (15:51)
[2017-01-17] MEDS: ENOXAPARIN 40 MG/0.4 ML SYRINGE SUBCUT SCH (15:52)
[2017-01-17] MEDS: clonazePAM 0.5 MG TABLET PO PRN (22:25)
[2017-01-17] MEDS: cefTAZidime 500 MG in SODIUM CHLORIDE 0.9% 100 ML IV SCH (22:59)
[2017-01-18 03:56] LABS: Basophils % 0.6 % (0.0-0.8); Eosinophils # 0.3 10*3/uL (0.0-0.87); Eosinophils % 4.9 % (0.00-10.9); Hematocrit 37.4 VOL% (42.0-52.0); Hemoglobin 11.5 GM/DL (14.0-18.0); Immature Granulocytes % 0.2 %; Immature Granulocytes Absolute 0.01 #; Lymphocytes # 1.7 10*3/uL (1.4-4.0); Lymphocytes % 27.1 % (21.2-54.2); Mean Corpuscular HGB Conc 30.7 GM/DL (32-36); Mean Corpuscular Hemoglobin 26 PG (27-34); Mean Corpuscular Volume 85.8 FL (87-102); Mean Platelet Volume 13.7 FL (9.6-12.0); Monocytes # 0.5 10*3/uL (0.11-0.8); Monocytes % 8.4 % (1.7-12.7); Neutrophils # 3.7 10*3/uL (1.4-7.4); Neutrophils % 58.8 % (38.7-73.9); Platelet Count 231 T/CUMM (130-400); Red Blood Count 4.36 MC/CUMM (3.8-5.5); Red Cell Distribution Width 16.2 % (9.3-17.3); White Blood Count 6.3 T/CUMM (4-12)
[2017-01-18 04:32] LABS: Albumin 2.7 G/DL (3.4-5.0); Bilirubin,Total 0.7 MG/DL (0.2-1.0); Calcium 8.2 MG/DL (8.5-10.1); Magnesium 2.3 MG/DL (1.8-2.4); Total Protein 6.2 G/DL (6.4-8.3)
[2017-01-18 04:33] LABS: Osmolality,Calculated 284.7 MOS/KG (273-304); Potassium 3.9 MMOL/L (3.5-5.1)
[2017-01-18] MEDS: cefTAZidime 500 MG in SODIUM CHLORIDE 0.9% 100 ML IV SCH ×3 (05:00→17:09)
[2017-01-18] MEDS: hydroCHLOROthiazide 12.5 MG CAPSULE PO SCH (08:09)
[2017-01-18] MEDS: CHOLECALCIFEROL 1,000 UNIT TABLET PO SCH (08:10)
[2017-01-18] MEDS: DOCUSATE SODIUM 100 MG/10 ML UDCUP PO SCH ×2 (08:10→22:38)
[2017-01-18] MEDS: clonazePAM 0.5 MG TABLET PO SCH (08:10)
[2017-01-18] MEDS: BACLOFEN 20 MG TABLET PO SCH ×3 (08:10→22:38)
[2017-01-18] MEDS: PANTOPRAZOLE 40 MG TABLET PO SCH (08:10)
[2017-01-18] MEDS: PROPRANOLOL 10 MG TABLET PO SCH ×2 (08:10→22:37)
[2017-01-18] MEDS: SODIUM CHLORIDE 0.9% 1,000 ML IV SCH ×2 (08:11→17:11)
--- NOTE | 2017-01-18 09:31 | Hospitalist Progress Note ---
Assessment and Plan (1) Attention to gastrostomy tube Status: Acute Assessment and plan: The patient was evaluated by GI on yesterday. We appreciate the input. We agree with the plan for G-tube placement this a.m. 01/16-PEG tube removed on yesterday with subsequent G-tube placement. Enteral feedings have been resumed. The patient has tolerated well thus far. We will continue to monitor. 01/17-Enteral feedings in progress. 01/18-enteral feedings and progress; the patient is tolerating without incident. Current Visit: Yes (2) Urinary tract infection Status: Acute Assessment and plan: We will continue antibiotic coverage as previously ordered. We will await culture sensitivity report for further direction. 01/16-urine culture preliminary report significant for gram-negative rods. We will await culture and sensitivity report. We will continue antibiotic coverage as previously ordered. 01/17-awaiting culture and sensitivity report. We will continue antibiotic coverage as previously ordered. 01/18-urine culture and sensitivity report obtained which were significant for Providencia stuartii. Previous antibiotic coverage discontinued. Culture and sensitivity reported susceptibility to Fortaz and Zosyn. Upon review the HELADIO was significantly higher for Zosyn; the patient was subsequently started on Fortaz 500 mg every 8 hours. We will consult infectious disease to evaluate and treat. Current Visit: Yes Hospitalist: Subjective Interval history: Patient seen and examined; chart reviewed. No significant overnight events reported per staff. Urine culture and sensitivity reported Providencia stuartii. Antibiotic coverage adjusted yesterday. Exam - Constitutional Vitals: Period Temp Pulse Resp BP Sys/Lee Pulse Ox Last 24 Hr 97.6 F-99.1 F 64-92 18-20 109-131/67-78 94-96 General appearance: normal weight, no acute distress - Head Head exam: Present: normal inspection, normocephalic, atraumatic - Eye Eye exam: Present: EOMI. Absent: conjunctival injection Pupils: Present: FLAQUITO, normal accommodation - ENT ENT exam: Present: normal exam, normal external ear exam, normal oropharynx - Neck Neck exam: Present: normal inspection. Absent: lymphadenopathy, meningismus, tenderness, thyromegaly - Respiratory Respiratory exam: Present: clear to auscultation bilaterally. Absent: rales, rhonchi, stridor, wheezes - Cardiovascular Cardiovascular exam: Present: regular rate and rhythm. Absent: carotid bruit, diastolic murmur, gallop, JVD, rubs, systolic murmur - GI/Abdominal GI/Abdominal exam: Present: normal bowel sounds, soft, other (NG tube patent and intact) - Extremities Exam Extremities exam: Present: normal capillary refill, other (Bilateral contractures noted to upper and lower extremity). Absent: full ROM ( Contractures noted bilaterally to upper and lower extremities) - Back Exam Back exam: Present: normal inspection - Neurological Exam Neurological exam: Present: alert, altered - Psychiatric Psychiatric exam: Present: normal affect - Skin Skin exam: Present: normal color, warm, abrasion Results - Labs CBC & BMP: 01/18/17 02:22 01/18/17 02:22 Lab Results: I have reviewed the past 24 hour labs Quality Measures - Stroke Symptom Onset Unknown: No
[2017-01-18] MEDS: MORPHINE 2 MG/1 ML SYRINGE IV PRN (16:24)
[2017-01-18] MEDS: ENOXAPARIN 40 MG/0.4 ML SYRINGE SUBCUT SCH (16:26)
[2017-01-18] MEDS: clonazePAM 0.5 MG TABLET PO PRN (22:37)
[2017-01-19] MEDS: SODIUM CHLORIDE 0.9% 1,000 ML IV SCH ×2 (02:02→13:06)
[2017-01-19] MEDS: cefTAZidime 500 MG in SODIUM CHLORIDE 0.9% 100 ML IV SCH ×3 (02:04→18:49)
[2017-01-19 06:31] LABS: Basophils % 0.4 % (0.0-0.8); Eosinophils # 0.3 10*3/uL (0.0-0.87); Eosinophils % 3.8 % (0.00-10.9); Hematocrit 37.2 VOL% (42.0-52.0); Immature Granulocytes % 0.3 %; Immature Granulocytes Absolute 0.03 #; Lymphocytes # 1.4 10*3/uL (1.4-4.0); Lymphocytes % 15.8 % (21.2-54.2); Mean Corpuscular HGB Conc 32.3 GM/DL (32-36); Mean Corpuscular Hemoglobin 27 PG (27-34); Mean Corpuscular Volume 82.5 FL (87-102); Mean Platelet Volume 12.4 FL (9.6-12.0); Monocytes # 0.6 10*3/uL (0.11-0.8); Monocytes % 6.8 % (1.7-12.7); Neutrophils # 6.5 10*3/uL (1.4-7.4); Neutrophils % 72.9 % (38.7-73.9); Platelet Count 305 T/CUMM (130-400); Red Blood Count 4.51 MC/CUMM (3.8-5.5); Red Cell Distribution Width 15.7 % (9.3-17.3); White Blood Count 8.9 T/CUMM (4-12)
[2017-01-19 07:02] LABS: Albumin 2.9 G/DL (3.4-5.0); Bilirubin,Total 0.7 MG/DL (0.2-1.0); Calcium 8.6 MG/DL (8.5-10.1); Magnesium 2.2 MG/DL (1.8-2.4); Osmolality,Calculated 275.5 MOS/KG (273-304); Phosphorous 2.8 MG/DL (2.5-4.9); Potassium 3.8 MMOL/L (3.5-5.1); Total Protein 6.7 G/DL (6.4-8.3)
[2017-01-19] MEDS: BACLOFEN 20 MG TABLET PO SCH ×3 (08:25→22:08)
[2017-01-19] MEDS: hydroCHLOROthiazide 12.5 MG CAPSULE PO SCH (08:25)
[2017-01-19] MEDS: DOCUSATE SODIUM 100 MG/10 ML UDCUP PO SCH ×2 (08:25→22:08)
[2017-01-19] MEDS: clonazePAM 0.5 MG TABLET PO SCH (08:25)
[2017-01-19] MEDS: CHOLECALCIFEROL 1,000 UNIT TABLET PO SCH (08:25)
[2017-01-19] MEDS: PROPRANOLOL 10 MG TABLET PO SCH ×2 (08:25→22:08)
[2017-01-19] MEDS: PANTOPRAZOLE 40 MG TABLET PO SCH (08:34)
--- NOTE | 2017-01-19 10:55 | Hospitalist Progress Note ---
Assessment and Plan (1) Attention to gastrostomy tube Status: Acute Assessment and plan: The patient was evaluated by GI on yesterday. We appreciate the input. We agree with the plan for G-tube placement this a.m. 01/16-PEG tube removed on yesterday with subsequent G-tube placement. Enteral feedings have been resumed. The patient has tolerated well thus far. We will continue to monitor. 01/17-Enteral feedings in progress. 01/18-enteral feedings and progress; the patient is tolerating without incident. 01/19-continue enteral feedings as previously ordered. Current Visit: Yes (2) Urinary tract infection Status: Acute Assessment and plan: We will continue antibiotic coverage as previously ordered. We will await culture sensitivity report for further direction. 01/16-urine culture preliminary report significant for gram-negative rods. We will await culture and sensitivity report. We will continue antibiotic coverage as previously ordered. 01/17-awaiting culture and sensitivity report. We will continue antibiotic coverage as previously ordered. 01/18-urine culture and sensitivity report obtained which were significant for Providencia stuartii. Previous antibiotic coverage discontinued. Culture and sensitivity reported susceptibility to Fortaz and Zosyn. Upon review the HELADIO was significantly higher for Zosyn; the patient was subsequently started on Fortaz 500 mg every 8 hours. We will consult infectious disease to evaluate and treat. 01/19-we will continue Fortaz as previously ordered. We will await infectious disease consultation for further recommendations. Current Visit: Yes Hospitalist: Subjective Interval history: Patient seen and examined; chart reviewed. No significant overnight events reported per staff. Awaiting infectious disease consultation in a.m. Continue Fortaz as previously ordered. Exam - Constitutional Vitals: Period Temp Pulse Resp BP Sys/Lee Pulse Ox Last 24 Hr 97.0 F-99.6 F 69-98 18-20 108-143/65-91 94-99 General appearance: normal weight, no acute distress - Head Head exam: Present: normal inspection, normocephalic, atraumatic, abrasion - Eye Eye exam: Present: EOMI, conjunctival injection Pupils: Present: FLAQUITO, normal accommodation - ENT ENT exam: Present: normal exam, normal external ear exam, normal oropharynx - Neck Neck exam: Present: normal inspection. Absent: lymphadenopathy, meningismus, tenderness, thyromegaly - Respiratory Respiratory exam: Present: clear to auscultation bilaterally. Absent: rales, rhonchi, stridor, wheezes - Cardiovascular Cardiovascular exam: Present: regular rate and rhythm. Absent: carotid bruit, diastolic murmur, gallop, JVD, rubs, systolic murmur - GI/Abdominal GI/Abdominal exam: Present: normal bowel sounds, other (PEG tube patent and intact) - Extremities Exam Extremities exam: Present: normal capillary refill, edema, other (Contractures noted to bilateral upper and lower extremeties). Absent: full ROM - Back Exam Back exam: Present: normal inspection - Neurological Exam Neurological exam: Present: alert, oriented X3, CN II-XII intact - Psychiatric Psychiatric exam: Present: normal affect, normal mood - Skin Skin exam: Present: normal color, warm, dry Results - Labs CBC & BMP: 01/19/17 06:17 01/19/17 06:17 Lab Results: I have reviewed the past 24 hour labs Quality Measures - Stroke Symptom Onset Unknown: No
[2017-01-19] MEDS: MORPHINE 2 MG/1 ML SYRINGE IV PRN ×2 (14:22→22:09)
[2017-01-19] MEDS: ENOXAPARIN 40 MG/0.4 ML SYRINGE SUBCUT SCH (17:23)
--- NOTE | 2017-01-19 18:02 | XRay Report ---
History: Shortness of breath Date: 01/19/2017 Study: Chest x-ray AP portable Comparison exam: January 14, 2017 The cardiomediastinal silhouette is unchanged. There is increased mild platelike atelectasis in the lung bases. The lungs are otherwise generally unchanged. There is no gross pleural effusion. There is moderate rotation of the patient to left. Osseous structures are similar. Impression: Increasing mild platelike atelectasis in the lung bases PROCEDURE INTERPRETED AT [facility] DEPARTMENT OF RADIOLOGY Final Report Signed by: Dr. Kaylen Goldberg
[2017-01-19] MEDS: ALBUTEROL/IPRATROPIUM 3 ML NEB RESP TX SCH (19:42)
[2017-01-19] MEDS: clonazePAM 0.5 MG TABLET PO PRN (22:08)
[2017-01-19] MEDS: POLYETHYLENE GLYCOL POWDER 17 GM PACK PO SCH (23:45)
[2017-01-20] MEDS: ALBUTEROL/IPRATROPIUM 3 ML NEB RESP TX SCH ×6 (00:05→18:30)
[2017-01-20] MEDS: cefTAZidime 500 MG in SODIUM CHLORIDE 0.9% 100 ML IV SCH ×3 (02:49→17:00)
[2017-01-20] MEDS: SODIUM CHLORIDE 0.9% 1,000 ML IV SCH ×4 (02:52→17:02)
[2017-01-20 07:08] LABS: Albumin 3.1 G/DL (3.4-5.0); Bilirubin,Total 0.6 MG/DL (0.2-1.0); Magnesium 2.3 MG/DL (1.8-2.4); Osmolality,Calculated 279.3 MOS/KG (273-304); Phosphorous 3.7 MG/DL (2.5-4.9); Potassium 3.9 MMOL/L (3.5-5.1); Total Protein 7.2 G/DL (6.4-8.3)
[2017-01-20 07:34] LABS: Basophils % 0.5 % (0.0-0.8); Eosinophils # 0.3 10*3/uL (0.0-0.87); Hematocrit 36.6 VOL% (42.0-52.0); Hemoglobin 11.9 GM/DL (14.0-18.0); Immature Granulocytes % 0.2 %; Immature Granulocytes Absolute 0.02 #; Lymphocytes # 1.3 10*3/uL (1.4-4.0); Lymphocytes % 16.2 % (21.2-54.2); Mean Corpuscular HGB Conc 32.5 GM/DL (32-36); Mean Corpuscular Hemoglobin 27 PG (27-34); Mean Corpuscular Volume 82.1 FL (87-102); Mean Platelet Volume 12.5 FL (9.6-12.0); Monocytes # 0.7 10*3/uL (0.11-0.8); Monocytes % 8.1 % (1.7-12.7); Neutrophils # 5.7 10*3/uL (1.4-7.4); Platelet Count 297 T/CUMM (130-400); Red Blood Count 4.46 MC/CUMM (3.8-5.5); Red Cell Distribution Width 15.9 % (9.3-17.3)
[2017-01-20] MEDS: BACLOFEN 20 MG TABLET PO SCH ×3 (09:43→21:47)
[2017-01-20] MEDS: DOCUSATE SODIUM 100 MG/10 ML UDCUP PO SCH ×2 (09:43→21:47)
[2017-01-20] MEDS: clonazePAM 0.5 MG TABLET PO SCH (09:43)
[2017-01-20] MEDS: PROPRANOLOL 10 MG TABLET PO SCH ×2 (09:44→21:48)
[2017-01-20] MEDS: hydroCHLOROthiazide 12.5 MG CAPSULE PO SCH (09:44)
[2017-01-20] MEDS: PANTOPRAZOLE 40 MG TABLET PO SCH (09:44)
[2017-01-20] MEDS: POLYETHYLENE GLYCOL POWDER 17 GM PACK PO SCH (09:44)
[2017-01-20] MEDS: CHOLECALCIFEROL 1,000 UNIT TABLET PO SCH (09:44)
--- NOTE | 2017-01-20 10:15 | Pulmonology Consult Note ---
Assessment and Plan (1) Atelectasis both lower lobe Status: Acute Assessment and plan: We will plan bronchoscopy in the morning. Suspect he has mucus plugging. Adding Pulmozyme. We can step up respiratory therapy or change antibiotics depending on her findings with bronchoscopy. Current Visit: Yes (2) Schizophrenia Status: Acute Assessment and plan: On multiple medications. Has very poor cough. Current Visit: Yes (3) Mental retardation Status: Acute Assessment and plan: This also affects his cough reflex and swallowing. He is on a PEG tube. Current Visit: Yes (4) Urinary tract infection Status: Acute Assessment and plan: This has been appropriately treated. Current Visit: Yes History of Present Illness Chief complaint: Atelectasis, poor cough History of present illness: Mr. Zuñiga is a 41 year old male lives at [facility] with a history of mental retardation and schizophrenia. He came in with a urinary tract infection with probable dementia. He has been treated with appropriate antibiotics. However the patient has developed a cough and congestion and has bibasilar atelectasis. I was asked to see him to help from a pulmonary standpoint. The patient has multiple allergies to psychiatric medications. He is currently getting Fortaz and nebulized bronchodilators. Please see medication list for other meds. Home Medications Medication Instructions Recorded Confirmed Type Baclofen Tab [Lioresal] 20 mg PEG TID 08/30/15 01/14/17 History Cholecalciferol (Vitamin D3) 2,000 unit PEG DAILY 08/30/15 01/14/17 History [Vitamin D3] Polyethylene Glycol Powder 17 gm PEG DAILY PRN 08/30/15 01/14/17 History [Miralax] Propranolol Tab [Inderal Tab] 10 mg PEG BID 08/30/15 01/14/17 History hydroCHLOROthiazide 12.5 mg PEG DAILY 08/30/15 01/14/17 History [Hydrochlorothiazide] clonazePAM TAB [KlonoPIN] 0.5 mg PEG BEDTIME PRN 02/13/16 01/14/17 History clonazePAM [Klonopin] 1 mg PEG QAM 02/13/16 01/14/17 History Acetaminophen Supp [Tylenol Supp] 650 mg RECTAL Q4H PRN MDD 3GM/24H 01/14/1709/25 History Clotrimazole/Betameth Cream 1 applic TOP BID PRN 01/14/17 01/14/17 History [Lotrisone Cream] Docusate Sodium Liquid [Colace 100 mg PEG BID 01/14/17 01/14/17 History Liquid] Esomeprazole Magnesium 20 mg PEG 0600 01/14/17 01/14/17 History [Esomeprazole] HYDROcodone/ACETAMIN 7.5-325 1 tablet PEG Q6H PRN 01/14/17 01/14/17 History [[place] 7.5-325] Loperamide Cap [Imodium Cap] 2 mg PEG Q2HR PRN MDD 16MG/24H 01/14/17 01/14/17 History Ondansetron Tab [Zofran Tab] 4 mg PEG Q8H PRN 01/14/17 01/14/17 History Selenium Sulfide [Selenium Sulfide 1 applic TOP DIRECTED 01/14/17 01/14/17 History 2.25% Shampoo] Allergies Allergy/AdvReac Type Severity Reaction Status Date / Time haloperidol [From Haldol] Allergy Unknown Unknown/Unable Verified 01/14/17 10:37 to obtain [place] Allergy Unknown Unknown/Unable Verified 01/14/17 10:37 to obtain olanzapine [From Zyprexa] Allergy Unknown Unknown/Unable Verified 01/14/17 10:37 to obtain risperidone [From Risperdal] Allergy Unknown Unknown/Unable Verified 01/14/17 10 :37 to obtain ziprasidone [From Geodon] Allergy Unknown Unknown/Unable Verified 01/14/17 10:37 to obtain ROS unobtainable: due to mental status Exam (Pulmonay) H&P - Constitutional Vitals: Period Temp Pulse Resp BP Sys/Lee Pulse Ox Last 24 Hr 98.1 F-99.9 F 73-110 16-22 99-132/53-82 93-99 Exam: Vital signs normal. Blood pressure 110/70. Afebrile. O2 sat in the mid 90s on room air. Pupils react to light. Poor oral hygiene. Neck is supple. Chest reveals some bilateral rhonchi. Heart normal rate and rhythm no murmurs. Abdomen soft nontender no masses. Has PEG tube in place. Remedies no clubbing cyanosis edema. Has contractures of all 4 extremities. Medical,Surgical,& Family Hx - Medical History Cardio: History of: Hypertension Psychological: History of: Schizophrenia Neurology: No history of: Seizures Endocrine: History of: Thyroid Disorder No history of: Diabetes Mellitus (IDDM) Genitourinary: No history of: Kidney Stones Musculoskeletal: History of: Musculoskeletal Problems (CONTRACTURES upper and lower extremities) Other: History of: 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) - Surgical History Cardiac Surgeries: Patient Denies: Cardiac Catheterization HEENT Surgeries: Surgical HX of: Tonsilectomy & Adenoidectomy Abdominal Surgeries: Patient denies: Appendectomy, Cholecystectomy Orthopedic Surgeries: Patient denies;: Orthopedic Surgery - Family History Family History: Reports;: Family Cancer, Family Diabetes, Family Heart Disease - Social History Smoking Status: Unknown if ever smoked Frequency of Alcohol Use: None Type of Drug Use: None Results - Labs CBC & BMP: 01/20/17 07:09 01/20/17 06:05 Lab Results: I have reviewed the past 24 hour labs - Diagnostic Findings Procedure: Chest x-ray: image reviewed by me (Platelike atelectasis in both lower lobes.) Quality Measures - Stroke Symptom Onset Unknown: No
[2017-01-20] MEDS: methylPREDNISolone SOD SUC 40 MG/1 ML VIAL IV SCH ×2 (11:15→21:48)
--- NOTE | 2017-01-20 15:01 | Infectious Disease Consult ---
Assessment and Plan (1) Urinary tract infection Status: Acute Assessment and plan: at [place] her culture from urine. Clinically the patient seems to have responded to current antibiotic therapy, ceftazidime. Recognitions: Recommend completion of 5 days of antibiotic therapy, so 2 more days to go. Thank you very much for the consult. Call again prn. Current Visit: Yes History of Present Illness Chief complaint: Positive urine culture, MDRO History of present illness: Mr. Zuñiga is a 41 year old male who is functionally quadriplegic and lives in a residential, and has chronic indwelling Crowder catheter, was sent to the hospital emergency room for CAT scan of the head after he fell 2 days prior and then was noted to be vomiting. 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 He has been on ceftazidime for the past 3 days and I am asked to assist with management. He did have low-grade fever to 100.6 on admission but has been afebrile for the past 4 days. Overall patient's mother thinks he is at baseline now. Home Medications Medication Instructions Recorded Confirmed Type Baclofen Tab [Lioresal] 20 mg PEG TID 08/30/15 01/14/17 History Cholecalciferol (Vitamin D3) 2,000 unit PEG DAILY 08/30/15 01/14/17 History [Vitamin D3] Polyethylene Glycol Powder 17 gm PEG DAILY PRN 08/30/15 01/14/17 History [Miralax] Propranolol Tab [Inderal Tab] 10 mg PEG BID 08/30/15 01/14/17 History hydroCHLOROthiazide 12.5 mg PEG DAILY 08/30/15 01/14/17 History [Hydrochlorothiazide] clonazePAM TAB [KlonoPIN] 0.5 mg PEG BEDTIME PRN 02/13/16 01/14/17 History clonazePAM [Klonopin] 1 mg PEG QAM 02/13/16 01/14/17 History Acetaminophen Supp [Tylenol Supp] 650 mg RECTAL Q4H PRN MDD 3GM/24H 01/14/1709/25 History Clotrimazole/Betameth Cream 1 applic TOP BID PRN 01/14/17 01/14/17 History [Lotrisone Cream] Docusate Sodium Liquid [Colace 100 mg PEG BID 01/14/17 01/14/17 History Liquid] Esomeprazole Magnesium 20 mg PEG 0600 01/14/17 01/14/17 History [Esomeprazole] HYDROcodone/ACETAMIN 7.5-325 1 tablet PEG Q6H PRN 01/14/17 01/14/17 History [[place] 7.5-325] Loperamide Cap [Imodium Cap] 2 mg PEG Q2HR PRN MDD 16MG/24H 01/14/17 01/14/17 History Ondansetron Tab [Zofran Tab] 4 mg PEG Q8H PRN 01/14/17 01/14/17 History Selenium Sulfide [Selenium Sulfide 1 applic TOP DIRECTED 01/14/17 01/14/17 History 2.25% Shampoo] Allergies Allergy/AdvReac Type Severity Reaction Status Date / Time haloperidol [From Haldol] Allergy Unknown Unknown/Unable Verified 01/14/17 10:37 to obtain [place] Allergy Unknown Unknown/Unable Verified 01/14/17 10:37 to obtain olanzapine [From Zyprexa] Allergy Unknown Unknown/Unable Verified 01/14/17 10:37 to obtain risperidone [From Risperdal] Allergy Unknown Unknown/Unable Verified 01/14/17 10 :37 to obtain ziprasidone [From Geodon] Allergy Unknown Unknown/Unable Verified 01/14/17 10:37 to obtain ROS unobtainable: due to mental status Medical,Surgical,& Family Hx - Medical History Cardio: History of: Hypertension Psychological: History of: Schizophrenia Neurology: No history of: Seizures Endocrine: History of: Thyroid Disorder No history of: Diabetes Mellitus (IDDM) Genitourinary: No history of: Kidney Stones Musculoskeletal: History of: Musculoskeletal Problems (CONTRACTURES upper and lower extremities) Other: History of: 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) - Surgical History Cardiac Surgeries: Patient Denies: Cardiac Catheterization HEENT Surgeries: Surgical HX of: Tonsilectomy & Adenoidectomy Abdominal Surgeries: Patient denies: Appendectomy, Cholecystectomy Orthopedic Surgeries: Patient denies;: Orthopedic Surgery - Family History Family History: Reports;: Family Cancer, Family Diabetes, Family Heart Disease - Social History Smoking Status: Unknown if ever smoked Frequency of Alcohol Use: None Type of Drug Use: None Infectious Disease Exam H&P - Constitutional Vitals: Vital Signs Temp Pulse Resp BP Pulse Ox 99.0 F 89 19 101/63 97 01/20/17 11:33 01/20/17 12:02 01/20/17 12:02 01/20/17 11:33 01/20/17 12:02 Intake and Output 01/19/17 01/20/17 01/20/17 23:59 07:59 15:59 Intake Total 1220 / 1220 820 / 820 1100 / 1100 Output Total 650 / 650 375 / 375 Balance 570 / 570 445 / 445 1100 / 1100 Intake: IV 1100 / 1100 100 / 100 1100 / 1100 Ns 1,000 ml @ 125 mls/hr 1000 / 1000 1000 / 1000 IV .Q8H ENEDINA Rx#: [id number] Fortaz 500 mg In Ns 100 100 / 100 100 / 100 100 / 100 ml @ 200 mls/hr IV Q8H ENEDINA Rx#:[id number] Tube Feeding Flush 120 / 120 720 / 720 Output: Urine 650 / 650 375 / 375 Stool 0 / 0 Other: Tube Feeding 225 Voiding Method Indwelling Catheter Indwelling Catheter # Bowel Movements 1 Exam: General: Patient relatively comfortable, he is alert but not able to communicate HEENT: Mucous membranes pink and moist, anicteric acyanotic, FLAQUITO, would not open his mouth inspection Neck: Supple, no thyroid gland enlargement Respiratory system: Breath sounds vesicular, no crepitations or wheezes Cardiovascular: Normal S1 and S2, no murmurs appreciated Abdomen: Normal bowel sounds, soft nontender throughout, no organomegaly or mass Genitourinary: No suprapubic pain or bladder distention, clear urine from Crowder catheter Extremities: no edema, all 4 limbs contracted Skin: No rash Reports - Labs CBC & BMP: 01/20/17 07:09 01/20/17 06:05 Labs: Laboratory Results - last 24 hr 01/19/17 01/19/17 01/20/17 18:35 22:13 00:30 WBC RBC Hgb Hct MCV MCH MCHC RDW Plt Count MPV Neut % (Auto) Lymph % (Auto) Atkinson % (Auto) Eos % (Auto) Baso % (Auto) Neut # (Auto) Lymph # (Auto) Atkinson # (Auto) Eos # (Auto) Baso # (Auto) Immature Gran % Nucleated RBC % Immature Gran # Nucleated RBCs # Immature Plt Fraction Sodium Potassium Chloride Carbon Dioxide Anion Gap BUN Creatinine GFR Calculation BUN/Creatinine Ratio Glucose POC Glucose 89 77 114 H Calculated Osmolality Calcium Phosphorus Magnesium Total Bilirubin AST ALT Alkaline Phosphatase Total Protein Albumin Globulin Albumin/Globulin Ratio 01/20/17 01/20/17 01/20/17 06:03 06:05 07:09 WBC 8.0 RBC 4.46 Hgb 11.9 L Hct 36.6 L MCV 82.1 L MCH 27 MCHC 32.5 RDW 15.9 Plt Count 297 MPV 12.5 H Neut % (Auto) 71.0 Lymph % (Auto) 16.2 L Atkinson % (Auto) 8.1 Eos % (Auto) 4.0 Baso % (Auto) 0.5 Neut # (Auto) 5.7 Lymph # (Auto) 1.3 L Atkinson # (Auto) 0.7 Eos # (Auto) 0.3 Baso # (Auto) 0.0 Immature Gran % 0.2 Nucleated RBC % 0.0 Immature Gran # 0.02 Nucleated RBCs # 0.00 Immature Plt Fraction 0.0 Sodium 141 Potassium 3.9 Chloride 105 Carbon Dioxide 30 Anion Gap 9.9 BUN 10 Creatinine 0.60 L GFR Calculation 132 BUN/Creatinine Ratio 16.00 Glucose 100 POC Glucose 108 H Calculated Osmolality 279.3 Calcium 9.0 Phosphorus 3.7 Magnesium 2.3 Total Bilirubin 0.60 AST 40 H ALT 73 H Alkaline Phosphatase 104 Total Protein 7.2 Albumin 3.1 L Globulin 4.1 H Albumin/Globulin Ratio 0.7 L 01/20/17 12:15 WBC RBC Hgb Hct MCV MCH MCHC RDW Plt Count MPV Neut % (Auto) Lymph % (Auto) Atkinson % (Auto) Eos % (Auto) Baso % (Auto) Neut # (Auto) Lymph # (Auto) Atkinson # (Auto) Eos # (Auto) Baso # (Auto) Immature Gran % Nucleated RBC % Immature Gran # Nucleated RBCs # Immature Plt Fraction Sodium Potassium Chloride Carbon Dioxide Anion Gap BUN Creatinine GFR Calculation BUN/Creatinine Ratio Glucose POC Glucose 104 Calculated Osmolality Calcium Phosphorus Magnesium Total Bilirubin AST ALT Alkaline Phosphatase Total Protein Albumin Globulin Albumin/Globulin Ratio
--- NOTE | 2017-01-20 16:28 | Hospitalist Progress Note ---
Hospitalist: Subjective Interval history: Patient is awake and comfortable Exam - Constitutional Vitals: Period Temp Pulse Resp BP Sys/Lee Pulse Ox Last 24 Hr 98.1 F-99.8 F 73-110 16-22 99-129/53-81 93-99 Exam: General: [No Acute Distress] HEENT: [Normocephalic, atraumatic, Extra ocular movements intact] Neck: [Supple, No JVD] Chest: [Clear to auscultation B/L] CV: [S1 + S2 audible without murmur, gallop or rub] Abd: [soft, PEG +, BS +] Ext: [No edema] Skin: [No purpura, bruising or rash] Rheumatologic: [No Joint deformities] Neurologic: [Awake alert and nonverbal] Results - Labs CBC & BMP: 01/20/17 07:09 01/20/17 06:05 - Impressions Assessment and Plan Success urinary tract infection, POA Status: Acute Assessment and plan: Continue Fortaz Current Visit: Yes Atelectasis both lower lobes Status: Acute Assessment and plan: He is on Pulmozyme. Pulmonary is planning FOB Current Visit: Yes Schizophrenia Status: Acute Assessment and plan: Continue his medications Current Visit: Yes Mental retardation Status: Acute Assessment and plan: Affects his ability to get a good cough causing atelectasis Current Visit: Yes Quality Measures - Stroke Symptom Onset Unknown: No
[2017-01-20] MEDS: ENOXAPARIN 40 MG/0.4 ML SYRINGE SUBCUT SCH (16:58)
[2017-01-20] MEDS: DORNASE ALFA 2.5 MG/2.5 ML VIAL RESP TX SCH (18:30)
[2017-01-21] MEDS: ALBUTEROL/IPRATROPIUM 3 ML NEB RESP TX SCH ×7 (00:08→23:00)
[2017-01-21] MEDS: cefTAZidime 500 MG in SODIUM CHLORIDE 0.9% 100 ML IV SCH ×3 (01:43→18:29)
[2017-01-21] MEDS: SODIUM CHLORIDE 0.9% 1,000 ML IV SCH ×3 (01:46→21:21)
[2017-01-21] MEDS ORDERED: PROMETHAZINE 25 MG/1 ML VIAL IM ONE (07:00)
[2017-01-21] MEDS ORDERED: MIDAZOLAM 2 MG/2 ML VIAL ONE (07:08)
[2017-01-21] MEDS: DORNASE ALFA 2.5 MG/2.5 ML VIAL RESP TX SCH ×2 (07:09→19:55)
[2017-01-21] MEDS ORDERED: LIDOCAINE 1% 20 ML VIAL MISC INJ ONE (07:30)
[2017-01-21] MEDS ORDERED: MIDAZOLAM 2 MG/2 ML VIAL IV ONE (07:30)
--- NOTE | 2017-01-21 07:44 | Operative Note ---
Date of procedure: 01/21/17 (Fiberoptic bronchoscopy with removal of mucous plugs and retained secretions) Pre-op diagnosis: Bibasilar atelectasis due to mucous plugging Post-op diagnosis: same Procedure: Patient was given intramuscular preoperative injection on the olsen. He was transported to the bronchoscopy suite. After an appropriate timeout to be sure we were dealing with Angel Zuñiga, the patient was topically anesthetized in the nose and nasopharynx with Cetacaine. 3 L of nasal oxygen was placed in the right naris. He was given 1 mg of Versed intravenously to the point of sedation. The fiberoptic bronchoscope was introduced via the left naris. Vocal cords were identified and function normally with phonation. There were a good bit of secretions above the cords which were removed. After further topical anesthesia the trachea was entered. It was free of lesions. The kishan was sharp. Right and left lungs were carefully inspected to the subsegmental level. There were no endobronchial lesions. There were welled up thick secretions primarily in the lower lobes and right middle lobe. Lingula was involved as well. Using saline irrigation washings were obtained from all 5 lobes. A photo was taken from the right lower lobe showing the welled up secretions. After removing the visible secretions the bronchoscope was removed and the patient returned to his room in stable condition. I discussed the case with the patient's mother. Anesthesia: conscious sedation Surgeon / Physician: Frederick Trevino Estimated blood loss: none Specimens: other (Bronchial washings for routine AFB and fungal cultures) Condition: stable Disposition: floor Results - Labs CBC & BMP: 01/20/17 07:09 01/20/17 06:05 Discharge Plan - Discharge Medications No Action Polyethylene Glycol Powder [Miralax] 17 gm PEG DAILY PRN PRN Reason: Constipation hydroCHLOROthiazide [Hydrochlorothiazide] 12.5 mg PEG DAILY Cholecalciferol (Vitamin D3) [Vitamin D3] 2,000 unit PEG DAILY Baclofen Tab [Lioresal] 20 mg PEG TID Propranolol Tab [Inderal Tab] 10 mg PEG BID clonazePAM [Klonopin] 1 mg PEG QAM clonazePAM TAB [KlonoPIN] 0.5 mg PEG BEDTIME PRN PRN Reason: Anxiety Clotrimazole/Betameth Cream [Lotrisone Cream] 1 applic TOP BID PRN PRN Reason: RASH ON FACE Esomeprazole Magnesium [Esomeprazole] 20 mg PEG 0600 Ondansetron Tab [Zofran Tab] 4 mg PEG Q8H PRN PRN Reason: Nausea/Vomiting HYDROcodone/ACETAMIN 7.5-325 [[place] 7.5-325] 1 tablet PEG Q6H PRN PRN Reason: Pain Selenium Sulfide [Selenium Sulfide 2.25% Shampoo] 1 applic TOP DIRECTED Acetaminophen Supp [Tylenol Supp] 650 mg RECTAL Q4H PRN MDD 3GM/24H PRN Reason: Fever > 100.4 Or Headache Docusate Sodium Liquid [Colace Liquid] 100 mg PEG BID Loperamide Cap [Imodium Cap] 2 mg PEG Q2HR PRN MDD 16MG/24H PRN Reason: Diarrhea - Follow Up or Referral - Forms/Instructions
--- NOTE | 2017-01-21 07:46 | Pulmonology Progress Note ---
Pulmonary - PN: Subj Interval history: This 41-year-old white male is bedbound due to schizophrenia and mental retardation. He came in with a urinary tract infection. He developed linear atelectasis in both lower lobes radiographically. He has a poor cough. We took him for bronchoscopy this morning. Please see note from that. Overall there is little change in his condition from yesterday. I discussed the case with the patient's mother. Exam (Progress Note) - Constitutional Vitals: Period Temp Pulse Resp BP Sys/Lee Pulse Ox Last 24 Hr 97.1 F-99.5 F 74-121 14-24 101-146/49-95 92-99 Exam: Patient is lying in bed on his right side. Has nasal oxygen in place. Pupils react to light. Patient is noncommunicative. Neck is supple. Chest reveals some rhonchi in both bases. Heart normal rate rhythm no murmurs. Abdomen soft nontender no masses. Extremities he has contractures of all 4 extremities. Calves are nontender Results - Labs CBC & BMP: 01/20/17 07:09 01/20/17 06:05 Lab Results: I have reviewed the past 24 hour labs Assessment and Plan (1) Atelectasis both lower lobe Status: Acute Assessment and plan: We will plan bronchoscopy in the morning. Suspect he has mucus plugging. Adding Pulmozyme. We can step up respiratory therapy or change antibiotics depending on her findings with bronchoscopy. 01/21/2017 continuing empiric antibiotics and Pulmozyme per nebulizer. Bronchoscopy was done this morning and is reported elsewhere. We removed a good bit of secretions from his lower lobes. Some of this was thick consistent with mucous plugs. Current Visit: Yes (2) Schizophrenia Status: Chronic Assessment and plan: On multiple medications. Has very poor cough. Current Visit: Yes (3) Mental retardation Status: Chronic Assessment and plan: This also affects his cough reflex and swallowing. He is on a PEG tube. Current Visit: Yes (4) Urinary tract infection Status: Acute Assessment and plan: This has been appropriately treated. 01/21/2017 continuing antibiotics for urinary tract infection as well as for his atelectatic pneumonitis Current Visit: Yes
[2017-01-21] MEDS: methylPREDNISolone SOD SUC 40 MG/1 ML VIAL IV SCH ×2 (09:50→23:07)
[2017-01-21] MEDS: DOCUSATE SODIUM 100 MG/10 ML UDCUP PO SCH ×2 (11:21→21:09)
[2017-01-21] MEDS: hydroCHLOROthiazide 12.5 MG CAPSULE PO SCH (11:22)
[2017-01-21] MEDS: PROPRANOLOL 10 MG TABLET PO SCH ×2 (11:22→21:09)
[2017-01-21] MEDS: clonazePAM 0.5 MG TABLET PO SCH (11:23)
[2017-01-21] MEDS: BACLOFEN 20 MG TABLET PO SCH ×3 (11:23→21:09)
[2017-01-21] MEDS: POLYETHYLENE GLYCOL POWDER 17 GM PACK PO SCH (11:24)
[2017-01-21] MEDS: CHOLECALCIFEROL 1,000 UNIT TABLET PO SCH (11:25)
[2017-01-21] MEDS: PANTOPRAZOLE 40 MG TABLET PO SCH (11:25)
[2017-01-21] MEDS: ENOXAPARIN 40 MG/0.4 ML SYRINGE SUBCUT SCH (16:26)
[2017-01-21] MEDS: MORPHINE 2 MG/1 ML SYRINGE IV PRN (16:47)
--- NOTE | 2017-01-21 17:07 | Hospitalist Progress Note ---
Hospitalist: Subjective Interval history: Patient is breathing better after bronchoscopy was done and mucous plugs were removed Exam - Constitutional Vitals: Period Temp Pulse Resp BP Sys/Lee Pulse Ox Last 24 Hr 97.1 F-99.2 F 68-121 12-24 96-146/42-95 91-98 Exam: General: [No Acute Distress] HEENT: [Normocephalic, atraumatic, Extra ocular movements intact] Neck: [Supple, No JVD] Chest: [Clear to auscultation B/L] CV: [S1 + S2 audible without murmur, gallop or rub] Abd: [soft, PEG +, BS +] Ext: [No edema] Skin: [No purpura, bruising or rash] Rheumatologic: [No Joint deformities] Neurologic: [Awake alert and nonverbal] Results - Labs CBC & BMP: 01/20/17 07:09 01/20/17 06:05 - Impressions Assessment and Plan Sac urinary tract infection, POA Status: Acute Assessment and plan: Continue Fortaz Current Visit: Yes Atelectasis both lower lobes Status: Acute Assessment and plan: He is on Pulmozyme. His breathing has improved after bronchoscopy and mucous plugs were removed 01/21 Current Visit: Yes Schizophrenia Status: Acute Assessment and plan: Continue his medications Current Visit: Yes Mental retardation Status: Acute Assessment and plan: Affects his ability to get a good cough causing atelectasis Current Visit: Yes Quality Measures Quality Measures - Stroke Symptom Onset Unknown: No
[2017-01-21] MEDS: ASCORBIC ACID 500 MG TABLET PEG SCH (21:09)
[2017-01-21] MEDS: METHENAMINE HIPPURATE 1 GM TABLET PEG SCH (21:09)
[2017-01-22] MEDS: cefTAZidime 500 MG in SODIUM CHLORIDE 0.9% 100 ML IV SCH ×2 (02:04→11:00)
[2017-01-22] MEDS: ALBUTEROL/IPRATROPIUM 3 ML NEB RESP TX SCH ×3 (03:00→11:13)
[2017-01-22] MEDS: DORNASE ALFA 2.5 MG/2.5 ML VIAL RESP TX SCH (07:23)
--- NOTE | 2017-01-22 09:30 | Discharge Summary ---
<Shahida Mac - Last Filed: 01/22/17 09:59> Hospital Course - Hospital Course Hospital Course: Mr Zuñiga is a 41 year old white male w/PMHx of [place], hypertension, schizophrenia, thyroid disorder, and all extremities contracted presented to the ED on 01/14/17 via EMS from [facility] for further evaluation of nausea, vomiting and s/p fall from bed 2 days prior to arrival. IN ED: Cervical CT Spine: no evidence of injury to the cervical spine. CXR: mid inspiratory chest with mild interstitial thickening without consolidating infiltrates or effusions. Head CT: minimal asymmetric left sylvian fissure and possibel component of mild atrophic changes, no acute hemorrhage infarction or mass. LABS: WBC 14.9, BUN 29, Creatinine 0.50, Magnesium 2.5. Urinalysis: positive for UTI: positive nitrates, large leukocytes, WBC 455, with many clumps. UTI was present on admission, patient does have a chronic Crowder catheter. Patient is bed bound: contractures to all extremities. Hospital medicine consulted and admit patient to monitor bed, started IV hydration, antibiotics, antiemetics, and consulted GI. GI evaluated as followed: patient had an initial PEG tube placed back in August 2015 and needed to be replaced with an inflatable PEG tube that can be removed/ replaced more easily, replaced PEG in GI lab on 01/16/17. Urine culture grew providencia stuartii and placed on Fortaz. Pulmonary consulted for atelectasis both lower lobe lung, bronchoscopy performed on 01/21/17 and removed thick secretions, bibasilar atelectasis was due mucous plugging. Breathing has improved after bronchoscopy with removal of mucous plugging. Continued to tolerate feedings through PEG well. Today 01/22/17 Patients breathing has improved, he continues to tolerate feedings via PEG tube and is stable. It is felt that he is adequate for discharge back to [facility] for continuation of care. He completed his course of his urine tract infection. He will need to follow up with Primary Care Physician. Diagnosis - Discharge Diagnosis (1) Urinary tract infection Status: Acute (2) Contracture of upper arm joint Status: Acute (3) Contractures involving both knees Status: Acute (4) Altered mental status Status: Acute Discharge Plan - Discharge Data Disposition: Disch/Xfer to Snf - Discharge Medications New Albuterol/Ipratropium Neb [Duoneb] 3 ml RESP TX RT Q4H Ascorbic Acid Tab [Vitamin C Tab] 500 mg PEG BID #60 tablet Polyethylene Glycol Powder [Miralax] 17 gm PO DAILY Zinc Oxide Paste [Desitin Paste] 1 applic TOP BID applic Methenamine Hippurate [Hiprex] 1 gm PEG BID #60 tablet Continue Polyethylene Glycol Powder [Miralax] 17 gm PEG DAILY PRN PRN Reason: Constipation hydroCHLOROthiazide [Hydrochlorothiazide] 12.5 mg PEG DAILY Cholecalciferol (Vitamin D3) [Vitamin D3] 2,000 unit PEG DAILY Baclofen Tab [Lioresal] 20 mg PEG TID Propranolol Tab [Inderal Tab] 10 mg PEG BID clonazePAM [Klonopin] 1 mg PEG QAM clonazePAM TAB [KlonoPIN] 0.5 mg PEG BEDTIME PRN PRN Reason: Anxiety Clotrimazole/Betameth Cream [Lotrisone Cream] 1 applic TOP BID PRN PRN Reason: RASH ON FACE Esomeprazole Magnesium [Esomeprazole] 20 mg PEG 0600 Ondansetron Tab [Zofran Tab] 4 mg PEG Q8H PRN PRN Reason: Nausea/Vomiting HYDROcodone/ACETAMIN 7.5-325 [[place] 7.5-325] 1 tablet PEG Q6H PRN PRN Reason: Pain Selenium Sulfide [Selenium Sulfide 2.25% Shampoo] 1 applic TOP DIRECTED Acetaminophen Supp [Tylenol Supp] 650 mg RECTAL Q4H PRN MDD 3GM/24H PRN Reason: Fever > 100.4 Or Headache Docusate Sodium Liquid [Colace Liquid] 100 mg PEG BID Loperamide Cap [Imodium Cap] 2 mg PEG Q2HR PRN MDD 16MG/24H PRN Reason: Diarrhea - Follow Up or Referral - Forms/Instructions Exam - Constitutional Vitals: Period Temp Pulse Resp BP Sys/Lee Pulse Ox Last 24 Hr 96.8 F-100 F 61-90 16-26 91-123/49-85 86-98 Discharge Results Procedures and tests throughout hospitalization: Pending Orders 01/21/17 07:30 AFB Culture/Smears Routine Bronchial Washings C & Gram St Routine Fungal Culture w/ Prep Routine 01/23/17 04:00 Basic Metabolic Panel MOTH Magnesium MOTH Phosphorous MOTH Prealbumin MOTH Labs on day of discharge: Labs from last 24 hours 01/22/17 01/22/17 01/21/17 07:25 06:43 23:07 POC Glucose 163 H 142 H 112 H 01/21/17 16:39 POC Glucose 135 H Preliminary micro results at discharge 01/21/17 07:30 Bronchial Washings Culture - Preliminary Bronchial Washings Gram Negative Rods DS: Provider Date of admission: 01/14/17 13:37 Primary care physician: . No PCP Attending physician on admission: Martha Ackerman MD Consults: 01/14/17 15:50 Consult to Case Mgmt/Social Srvs [CONS] Routine Reason for Case Mgmt/Social Srvs: Discharge Planning Consult to Wound Care - [place] [CONS] Routine Reason for Wound Care: Wound Care Management Consult Comment: bed bound(buttock and knee) 01/14/17 16:04 Consult to Physician [CONS] Routine Comment: Patient needs a new pack the current one is unusab Consulting Provider: Ankur Goldberg When should Consulting Provider be notified: Now Person Notified: MD ESPINO Date Notified: 01/15/17 Time Notified: 11:06 01/15/17 14:42 Consult to Dietitian [CONS] Routine Reason for Dietitian: TF-Initiate/Manage 01/19/17 10:57 Consult to Physician [CONS] Routine Comment: Consulting Provider: Marleni Guzman When should Consulting Provider be notified: In am Person Notified: Mis Date Notified: 01/20/17 Time Notified: 09:09 01/19/17 18:36 Consult to Physician [CONS] Routine Comment: Consulting Provider: Frederick Trevino Consult to Specialist Group: Pulmonology Person Notified: Dr. Trevino Date Notified: 01/20/17 Time Notified: 09:04 01/22/17 09:34 Consult to Wound Care - [place] [CONS] Routine Reason for Wound Care: Wound Care Management Discharging clinician: Shahida Mac NP <Martha Ackerman - Last Filed: 01/22/17 12:39> Hospital Course - Time spent with patient Time with patient DS: Greater than 30 minutes Diagnosis - Discharge Diagnosis (1) UTI (urinary tract infection) Status: Resolved Discharge Plan - Discharge Data Condition at Discharge: Stable Exam - Constitutional Exam: General: No Acute Distress HEENT: Normocephalic, atraumatic, Extra ocular movements intact Neck: Supple, No JVD Chest: Clear to auscultation B/L CV: S1 + S2 audible without murmur, gallop or rub Abd: soft, PEG + Ext: Contracted Skin: No purpura, bruising or rash
[2017-01-22] MEDS: METHENAMINE HIPPURATE 1 GM TABLET PEG SCH (10:20)
[2017-01-22] MEDS: DOCUSATE SODIUM 100 MG/10 ML UDCUP PO SCH (10:20)
[2017-01-22] MEDS: hydroCHLOROthiazide 12.5 MG CAPSULE PO SCH (10:20)
[2017-01-22] MEDS: BACLOFEN 20 MG TABLET PO SCH (10:21)
[2017-01-22] MEDS: PROPRANOLOL 10 MG TABLET PO SCH (10:21)
[2017-01-22] MEDS: clonazePAM 0.5 MG TABLET PO SCH (10:21)
[2017-01-22] MEDS: PANTOPRAZOLE 40 MG TABLET PO SCH ×2 (10:22→10:47)
[2017-01-22] MEDS: POLYETHYLENE GLYCOL POWDER 17 GM PACK PO SCH (10:22)
[2017-01-22] MEDS: ASCORBIC ACID 500 MG TABLET PEG SCH (10:22)
[2017-01-22] MEDS: CHOLECALCIFEROL 1,000 UNIT TABLET PO SCH (10:23)
[2017-01-22] MEDS: SODIUM CHLORIDE 0.9% 1,000 ML IV SCH (10:52)
[2017-01-22] MEDS: methylPREDNISolone SOD SUC 40 MG/1 ML VIAL IV SCH (11:00)
[2017-01-22 11:59] VITALS: BP 106/63
[2017-01-22] MEDS ORDERED: ZINC OXIDE PASTE 113 GM TUBE TOP SCH (12:00)
--- NOTE | 2017-01-23 15:31 | Physician Query Form ---
CLICK EDIT DOCUMENT TO SELECT QUERY ANSWER --> OK --> SIGN Ila Peng RN [employer] W) [phone] (f) [phone] [email or web address]: Make your selection(s) from the choices in EACH section by typing an "x" and enter comments in the comment section. Please use your independent medical judgment in providing your response. This request does not imply that any particular answer is desired or expected. CLINICAL INDICATORS: (Providers should not edit this section) Based on documentation of "Acute UTI" "UTI was present on admission, patient does have a chronic Castanon catheter" Treated with IV Ancef, IV Levaquin, and IV Rocephin. Based on the above, could you clarify the appropriate diagnosis, if significant , that supports the above abnormalities and additional evaluation, monitoring, and/or treatment rendered: (x ) UTI due to indwelling castanon catheter ( ) UTI NOT due to indwelling castanon catheter ( ) Other, please specify: ( ) Clinically unable to determine COMMENTS: PLEASE ALSO DOCUMENT RESPONSE IN PROGRESS NOTES AND/OR DISCHARGE SUMMARY Use of terms such as suspected, likely, or probable (associated with a specific diagnosis that is being evaluated, monitored, or treated as if it exists) are acceptable and can be restated in the discharge summary if not ruled out. MTDD
== END 2017-01-22 14:55 | DRG 698 ==
LOC: EDUNIT# → N.ED 10:31 → N.EDINP 13:37 → N.5E 16:06
PROVIDERS: ADMIT Hospitalist; ATTEND Hospitalist

== ENCOUNTER 2017-02-28 18:40 | Inpatient (IN) ==
[2017-02-28 20:51] LABS: Basophils # 0.1 10*3/uL (0.0-0.2); Basophils % 0.6 % (0.0-0.8); Eosinophils # 0.1 10*3/uL (0.0-0.87); Eosinophils % 1.1 % (0.00-10.9); Hematocrit 42.7 VOL% (42.0-52.0); Hemoglobin 14.1 GM/DL (14.0-18.0); Immature Granulocytes % 0.2 %; Immature Granulocytes Absolute 0.02 #; Lymphocytes # 1.6 10*3/uL (1.4-4.0); Lymphocytes % 18.6 % (21.2-54.2); Mean Corpuscular Hemoglobin 27 PG (27-34); Mean Corpuscular Volume 82.8 FL (87-102); Mean Platelet Volume 13.3 FL (9.6-12.0); Monocytes # 0.8 10*3/uL (0.11-0.8); Monocytes % 9.6 % (1.7-12.7); Neutrophils # 5.9 10*3/uL (1.4-7.4); Neutrophils % 69.9 % (38.7-73.9); Platelet Count 286 T/CUMM (130-400); Red Blood Count 5.16 MC/CUMM (3.8-5.5); Red Cell Distribution Width 15.9 % (9.3-17.3); White Blood Count 8.5 T/CUMM (4-12)
[2017-02-28 21:10] LABS: Albumin 3.9 G/DL (3.4-5.0); Bilirubin,Total 0.5 MG/DL (0.2-1.0); Osmolality,Calculated 280.7 MOS/KG (273-304); Potassium 3.7 MMOL/L (3.5-5.1); Total Protein 8.1 G/DL (6.4-8.3)
[2017-02-28] MEDS ORDERED: SODIUM CHLORIDE 0.9% 2,000 ML IV STA (22:14)
[2017-02-28 23:43] LABS: Apearance,Urine Slightly Hazy (Clear); Bacteria,Urine Occasional /HPF (Few); Bilirubin,Urine Negative (Negative); Blood, Urine Negative (Negative); Glucose,Urine (UA) Negative (Negative); Ketones,Urine 20 mg/dL (Negative); Mucus,Urine Occasional /LPF (Occasional); Nitrite,Urine Negative (Negative); Protein,Urine 30 MG/DL; RBC,Urine 40 /HPF (0-4); Urine Color Amber (Yellow); Urine Specific Gravity > 1.060 (1.001-1.035); WBC,Urine 25 /HPF (0-6)
[2017-03-01] MEDS ORDERED: ONDANSETRON 4 MG/2 ML VIAL IV PRN (00:34)
[2017-03-01] MEDS ORDERED: POLYETHYLENE GLYCOL POWDER 17 GM PACK PEG PRN (00:37)
[2017-03-01] MEDS ORDERED: clonazePAM 0.5 MG TABLET PEG PRN (00:37)
[2017-03-01] MEDS ORDERED: LOPERAMIDE 2 MG CAPSULE PEG PRN (00:37)
[2017-03-01] MEDS ORDERED: ACETAMINOPHEN 650 MG SUPP RECTAL PRN (00:37)
[2017-03-01] MEDS ORDERED: LOPERAMIDE 0.2 MG/ML 30 ML/BOTTLE PEG PRN (01:00)
[2017-03-01] MEDS: ALBUTEROL/IPRATROPIUM 3 ML NEB RESP TX SCH ×6 (02:34→23:55)
[2017-03-01] MEDS: DEXTROSE 5% NACL 0.45% 1,000 ML IV SCH ×3 (02:53→20:07)
[2017-03-01] MEDS ORDERED: INFLUENZA VIRUS VACCINE 0.5 ML SYRINGE IM ONE (03:52)
[2017-03-01 04:42] LABS: Basophils % 0.3 % (0.0-0.8); Eosinophils % 0.2 % (0.00-10.9); Hematocrit 39.4 VOL% (42.0-52.0); Hemoglobin 12.6 GM/DL (14.0-18.0); Immature Granulocytes % 0.3 %; Immature Granulocytes Absolute 0.03 #; Lymphocytes # 1.5 10*3/uL (1.4-4.0); Lymphocytes % 15.1 % (21.2-54.2); Mean Corpuscular Hemoglobin 27 PG (27-34); Mean Corpuscular Volume 83.5 FL (87-102); Mean Platelet Volume 13.8 FL (9.6-12.0); Monocytes # 0.9 10*3/uL (0.11-0.8); Monocytes % 8.7 % (1.7-12.7); Neutrophils # 7.4 10*3/uL (1.4-7.4); Neutrophils % 75.4 % (38.7-73.9); Platelet Count 258 T/CUMM (130-400); Red Blood Count 4.72 MC/CUMM (3.8-5.5); Red Cell Distribution Width 15.9 % (9.3-17.3); White Blood Count 9.8 T/CUMM (4-12)
[2017-03-01 05:34] LABS: Calcium 8.7 MG/DL (8.5-10.1); Potassium 3.6 MMOL/L (3.5-5.1)
[2017-03-01] MEDS: LANSOPRAZOLE ODT 30 MG TABLET PEG SCH (05:42)
[2017-03-01] MEDS ORDERED: DOCUSATE SODIUM 100 MG/10 ML UDCUP PEG SCH (09:00)
[2017-03-01] MEDS ORDERED: SELENIUM SULFIDE 2.5% LOTION 120 ML BOTTLE TOP SCH (09:00)
[2017-03-01] MEDS: hydroCHLOROthiazide 25 MG TABLET PEG SCH (12:35)
[2017-03-01] MEDS: METHENAMINE HIPPURATE 1 GM TABLET PEG SCH ×2 (12:35→21:25)
[2017-03-01] MEDS: PROPRANOLOL 10 MG TABLET PEG SCH ×2 (12:36→21:25)
[2017-03-01] MEDS: CHOLECALCIFEROL 1,000 UNIT TABLET PEG SCH (12:37)
[2017-03-01] MEDS: ASCORBIC ACID 500 MG TABLET PEG SCH ×2 (12:37→21:25)
[2017-03-01] MEDS: BACLOFEN 20 MG TABLET PEG SCH ×3 (12:37→21:25)
[2017-03-01] MEDS: clonazePAM 0.5 MG TABLET PEG SCH (12:37)
[2017-03-01] MEDS: ZINC OXIDE PASTE 113 GM TUBE TOP SCH ×2 (12:41→21:35)
[2017-03-01] MEDS ORDERED: POLYETHYLENE GLYCOL 3350/ELECTROLYTES 4,000 ML BOTTLE PEG ONE (13:55)
[2017-03-01] MEDS: BISACODYL 5 MG TABLET PEG SCH ×2 (16:35→21:26)
[2017-03-01] MEDS: METOCLOPRAMIDE 10 MG/2 ML VIAL IV SCH ×2 (18:00)
[2017-03-02 02:37] LABS: Basophils # 0.1 10*3/uL (0.0-0.2); Basophils % 0.8 % (0.0-0.8); Eosinophils # 0.2 10*3/uL (0.0-0.87); Eosinophils % 3.6 % (0.00-10.9); Hematocrit 36.3 VOL% (42.0-52.0); Hemoglobin 11.4 GM/DL (14.0-18.0); Immature Granulocytes % 0.3 %; Immature Granulocytes Absolute 0.02 #; Lymphocytes # 1.6 10*3/uL (1.4-4.0); Lymphocytes % 24.7 % (21.2-54.2); Mean Corpuscular HGB Conc 31.4 GM/DL (32-36); Mean Corpuscular Hemoglobin 27 PG (27-34); Mean Corpuscular Volume 84.6 FL (87-102); Mean Platelet Volume 13.1 FL (9.6-12.0); Monocytes # 0.7 10*3/uL (0.11-0.8); Monocytes % 11.6 % (1.7-12.7); Neutrophils # 3.7 10*3/uL (1.4-7.4); Platelet Count 223 T/CUMM (130-400); Red Blood Count 4.29 MC/CUMM (3.8-5.5); Red Cell Distribution Width 15.9 % (9.3-17.3); White Blood Count 6.3 T/CUMM (4-12)
[2017-03-02 02:42] LABS: Magnesium 2.1 MG/DL (1.8-2.4); Osmolality,Calculated 283.8 MOS/KG (273-304); Potassium 3.1 MMOL/L (3.5-5.1)
[2017-03-02] MEDS: DEXTROSE 5% NACL 0.45% 1,000 ML IV SCH ×2 (03:09→14:00)
[2017-03-02] MEDS: ALBUTEROL/IPRATROPIUM 3 ML NEB RESP TX SCH ×6 (03:41→23:36)
[2017-03-02] MEDS: METOCLOPRAMIDE 10 MG/2 ML VIAL IV SCH ×2 (06:00→14:03)
[2017-03-02] MEDS: BISACODYL 5 MG TABLET PEG SCH (06:30)
[2017-03-02] MEDS: LANSOPRAZOLE ODT 30 MG TABLET PEG SCH (06:31)
[2017-03-02] MEDS: METHENAMINE HIPPURATE 1 GM TABLET PEG SCH ×2 (10:02→21:40)
[2017-03-02] MEDS: hydroCHLOROthiazide 25 MG TABLET PEG SCH (10:02)
[2017-03-02] MEDS: PROPRANOLOL 10 MG TABLET PEG SCH ×2 (10:02→21:40)
[2017-03-02] MEDS: clonazePAM 0.5 MG TABLET PEG SCH (10:03)
[2017-03-02] MEDS: CHOLECALCIFEROL 1,000 UNIT TABLET PEG SCH (10:03)
[2017-03-02] MEDS: BACLOFEN 20 MG TABLET PEG SCH ×3 (10:03→21:40)
[2017-03-02] MEDS: ASCORBIC ACID 500 MG TABLET PEG SCH ×2 (10:03→21:41)
[2017-03-02] MEDS: ZINC OXIDE PASTE 113 GM TUBE TOP SCH ×2 (10:30→21:40)
[2017-03-02] MEDS: VANCOMYCIN INJ 1,000 MG in SODIUM CHLORIDE 0.9% 250 ML IV SCH ×2 (11:01→19:14)
[2017-03-02] MEDS: POTASSIUM CHLORIDE 20 MEQ/15 ML UDCUP PER TUBE PRN ×4 (14:04→21:00)
[2017-03-02] MEDS: POLYETHYLENE GLYCOL POWDER 17 GM PACK PO SCH (21:41)
[2017-03-03] MEDS: ALBUTEROL/IPRATROPIUM 3 ML NEB RESP TX SCH ×4 (02:19→14:56)
[2017-03-03] MEDS: VANCOMYCIN INJ 1,000 MG in SODIUM CHLORIDE 0.9% 250 ML IV SCH ×2 (03:30→11:44)
[2017-03-03] MEDS: LANSOPRAZOLE ODT 30 MG TABLET PEG SCH (06:25)
[2017-03-03] MEDS: DEXTROSE 5% NACL 0.45% 1,000 ML IV SCH ×2 (07:24→07:25)
[2017-03-03 07:48] LABS: Basophils % 0.6 % (0.0-0.8); Eosinophils # 0.3 10*3/uL (0.0-0.87); Hematocrit 36.6 VOL% (42.0-52.0); Hemoglobin 11.8 GM/DL (14.0-18.0); Immature Granulocytes % 0.1 %; Immature Granulocytes Absolute 0.01 #; Lymphocytes # 1.5 10*3/uL (1.4-4.0); Lymphocytes % 20.7 % (21.2-54.2); Mean Corpuscular HGB Conc 32.2 GM/DL (32-36); Mean Corpuscular Hemoglobin 27 PG (27-34); Mean Corpuscular Volume 83.2 FL (87-102); Mean Platelet Volume 12.7 FL (9.6-12.0); Monocytes # 0.7 10*3/uL (0.11-0.8); Monocytes % 9.4 % (1.7-12.7); Neutrophils # 4.7 10*3/uL (1.4-7.4); Neutrophils % 65.2 % (38.7-73.9); Platelet Count 244 T/CUMM (130-400); Red Cell Distribution Width 15.5 % (9.3-17.3); White Blood Count 7.2 T/CUMM (4-12)
[2017-03-03] MEDS: hydroCHLOROthiazide 25 MG TABLET PEG SCH (08:16)
[2017-03-03] MEDS: CHOLECALCIFEROL 1,000 UNIT TABLET PEG SCH (08:16)
[2017-03-03] MEDS: clonazePAM 0.5 MG TABLET PEG SCH (08:16)
[2017-03-03] MEDS: BACLOFEN 20 MG TABLET PEG SCH (08:16)
[2017-03-03] MEDS: POLYETHYLENE GLYCOL POWDER 17 GM PACK PO SCH (08:17)
[2017-03-03] MEDS: ASCORBIC ACID 500 MG TABLET PEG SCH (08:17)
[2017-03-03] MEDS: METHENAMINE HIPPURATE 1 GM TABLET PEG SCH (08:17)
[2017-03-03] MEDS: PROPRANOLOL 10 MG TABLET PEG SCH (08:17)
[2017-03-03 08:20] LABS: Calcium 8.2 MG/DL (8.5-10.1); Magnesium 2.1 MG/DL (1.8-2.4); Osmolality,Calculated 281.8 MOS/KG (273-304)
[2017-03-03] MEDS: POTASSIUM CHLORIDE RIDER 10 MEQ in PREMIX 1 EACH IV PRN ×2 (09:37→10:34)
[2017-03-03] MEDS: ZINC OXIDE PASTE 113 GM TUBE TOP SCH (09:37)
[2017-03-03 11:11] VITALS: BP 130/90
== END 2017-03-03 15:30 | DRG 388 ==
LOC: EDUNIT# → EDBD → N.ED 18:40 → N.EDINP 23:20 → N.3E 23:49
PROVIDERS: ADMIT Internal Medicine; ATTEND Internal Medicine

== ENCOUNTER 2017-08-23 09:52 | Inpatient (IN) ==
[2017-08-23] MEDS ORDERED: cefTRIAXone 1,000 MG in SODIUM CHLORIDE 0.9% 100 ML IV STA (11:10)
[2017-08-23 11:21] LABS: Eosinophils # 0.1 10*3/uL (0.0-0.87); Eosinophils % 0.6 % (0.00-10.9); Immature Granulocytes Absolute 0.03 #; Monocytes # 0.9 10*3/uL (0.11-0.8)
[2017-08-23 11:27] LABS: Basophils # 0.1 10*3/uL (0.0-0.2); Basophils % 0.7 % (0.0-0.8); Hematocrit 44.7 VOL% (42.0-52.0); Hemoglobin 14.1 GM/DL (14.0-18.0); Immature Granulocytes % 0.4 %; Lymphocytes # 1.3 10*3/uL (1.4-4.0); Lymphocytes % 15.9 % (21.2-54.2); Mean Corpuscular HGB Conc 31.5 GM/DL (32-36); Mean Corpuscular Hemoglobin 27 PG (27-34); Mean Corpuscular Volume 85.1 FL (87-102); Mean Platelet Volume 13.1 FL (9.6-12.0); Monocytes % 10.1 % (1.7-12.7); Neutrophils # 6.1 10*3/uL (1.4-7.4); Neutrophils % 72.3 % (38.7-73.9); Platelet Count 248 T/CUMM (130-400); Red Blood Count 5.25 MC/CUMM (3.8-5.5); White Blood Count 8.4 T/CUMM (4-12)
[2017-08-23 11:30] LABS: Apearance,Urine CLEAR (Clear); Bilirubin,Urine Negative (Negative); Blood, Urine Negative (Negative); Glucose,Urine (UA) Negative (Negative); Ketones,Urine Negative (Negative); Mucus,Urine Occasional /LPF (Occasional); Nitrite,Urine Negative (Negative); Protein,Urine Negative; RBC,Urine 14 /HPF (0-4); Squamous Epithelial Cell,Urine Occasional /HPF (0-10); Urine Color Yellow (Yellow); Urine Specific Gravity 1.027 (1.001-1.035); WBC,Urine 1 /HPF (0-6)
[2017-08-23] MEDS ORDERED: cefTRIAXone 1,000 MG VIAL ONE (11:40)
[2017-08-23 11:54] LABS: Calcium 8.8 MG/DL (8.5-10.1); Lactic Acid 1.3 MMOL/L (0.4-2.0)
[2017-08-23 11:55] LABS: Albumin 3.5 G/DL (3.4-5.0); Bilirubin,Total 0.5 MG/DL (0.2-1.0); Osmolality,Calculated 295.6 MOS/KG (273-304); Potassium 3.6 MMOL/L (3.5-5.1); Total Protein 7.7 G/DL (6.4-8.3)
[2017-08-23] MEDS ORDERED: ACETAMINOPHEN 325 MG TABLET PO PRN (13:08)
[2017-08-23] MEDS ORDERED: ONDANSETRON 4 MG/2 ML VIAL IV PRN (13:08)
[2017-08-23] MEDS ORDERED: cefTRIAXone 1,000 MG in SYRINGE 1 EACH IV SCH (13:30)
[2017-08-23] MEDS: SODIUM CHLORIDE 0.9% 1,000 ML IV SCH (15:24)
[2017-08-23] MEDS: ACETAMINOPHEN 325 MG TABLET PO PRN ×2 (16:42→21:59)
[2017-08-23] MEDS: VANCOMYCIN INJ 750 MG in SODIUM CHLORIDE 0.9% 250 ML IV SCH (16:42)
[2017-08-24] MEDS: VANCOMYCIN INJ 750 MG in SODIUM CHLORIDE 0.9% 250 ML IV SCH ×3 (00:30→18:14)
[2017-08-24] MEDS: SODIUM CHLORIDE 0.9% 1,000 ML IV SCH ×2 (00:30→08:02)
[2017-08-24] MEDS: ACETAMINOPHEN 325 MG TABLET PO PRN ×5 (01:14→20:36)
[2017-08-24] MEDS ORDERED: IBUPROFEN 100 MG/5 ML UDCUP PO ONE (03:00)
[2017-08-24 04:12] LABS: Basophils # 0.1 10*3/uL (0.0-0.2); Basophils % 0.4 % (0.0-0.8); Eosinophils % 0.2 % (0.00-10.9); Hematocrit 40.2 VOL% (42.0-52.0); Hemoglobin 12.5 GM/DL (14.0-18.0); Immature Granulocytes % 0.3 %; Immature Granulocytes Absolute 0.04 #; Lymphocytes # 1.8 10*3/uL (1.4-4.0); Lymphocytes % 14.6 % (21.2-54.2); Mean Corpuscular HGB Conc 31.1 GM/DL (32-36); Mean Corpuscular Hemoglobin 27 PG (27-34); Mean Corpuscular Volume 85.5 FL (87-102); Mean Platelet Volume 13.2 FL (9.6-12.0); Monocytes # 0.9 10*3/uL (0.11-0.8); Monocytes % 6.9 % (1.7-12.7); Neutrophils # 9.6 10*3/uL (1.4-7.4); Neutrophils % 77.6 % (38.7-73.9); Platelet Count 235 T/CUMM (130-400); Red Cell Distribution Width 15.9 % (9.3-17.3); White Blood Count 12.4 T/CUMM (4-12)
[2017-08-24 04:44] LABS: Albumin 3.3 G/DL (3.4-5.0); Bilirubin,Total 1.3 MG/DL (0.2-1.0); Osmolality,Calculated 299.1 MOS/KG (273-304); Potassium 3.1 MMOL/L (3.5-5.1); Total Protein 6.9 G/DL (6.4-8.3)
[2017-08-24 04:50] LABS: Free T4 (Free Thyroxine) 1.28 NG/DL (0.76-1.46); Thyroid Stimulating Hormone 1.16 uIU/ml (0.358-3.74)
[2017-08-24] MEDS ORDERED: cefTRIAXone 2,000 MG in SYRINGE 1 EACH IV SCH (11:30)
[2017-08-24] MEDS ORDERED: cefTRIAXone 1,000 MG in SYRINGE 1 EACH IV SCH (11:30)
[2017-08-24] MEDS: IBUPROFEN 100 MG/5 ML UDCUP PO PRN ×2 (11:33→18:22)
[2017-08-24] MEDS: MEROPENEM 500 MG in SODIUM CHLORIDE 0.9% 100 ML IV SCH ×2 (11:33→20:34)
[2017-08-24] MEDS: PANTOPRAZOLE 40 MG VIAL IV SCH (11:34)
[2017-08-24] MEDS: POTASSIUM CHLORIDE RIDER 10 MEQ in PREMIX 1 EACH IV PRN ×3 (12:43→16:37)
[2017-08-24] MEDS: POTASSIUM CHLORIDE INJ 40 MEQ in DEXTROSE 5% NACL 0.22% 1,000 ML IV SCH (15:25)
[2017-08-24 18:58] LABS: Apearance,Urine CLEAR (Clear); Bilirubin,Urine Negative (Negative); Blood, Urine Moderate mg/dL (Negative); Glucose,Urine (UA) Negative (Negative); Hyaline Casts,Urine 2 /LPF (0-3); Ketones,Urine 20 mg/dL (Negative); Mucus,Urine Few /LPF (Occasional); Nitrite,Urine Negative (Negative); Protein,Urine 30 MG/DL; RBC,Urine 3 /HPF (0-4); Squamous Epithelial Cell,Urine Occasional /HPF (0-10); Urine Color Yellow (Yellow); Urine Specific Gravity 1.015 (1.001-1.035); WBC,Urine 3 /HPF (0-6)
[2017-08-25] MEDS: ACETAMINOPHEN 325 MG TABLET PO PRN ×3 (00:15→12:33)
[2017-08-25] MEDS: POTASSIUM CHLORIDE RIDER 10 MEQ in PREMIX 1 EACH IV PRN ×3 (00:17→23:10)
[2017-08-25] MEDS: POTASSIUM CHLORIDE INJ 40 MEQ in DEXTROSE 5% NACL 0.22% 1,000 ML IV SCH ×2 (00:22→14:51)
[2017-08-25] MEDS: VANCOMYCIN INJ 1,000 MG in SODIUM CHLORIDE 0.9% 250 ML IV SCH ×3 (01:40→17:46)
[2017-08-25] MEDS: MEROPENEM 500 MG in SODIUM CHLORIDE 0.9% 100 ML IV SCH (01:41)
[2017-08-25] MEDS: IBUPROFEN 100 MG/5 ML UDCUP PO PRN ×3 (08:54→14:50)
[2017-08-25] MEDS: PANTOPRAZOLE 40 MG VIAL IV SCH (08:54)
[2017-08-25] MEDS: MEROPENEM 1,000 MG in SYRINGE 1 EACH IV SCH ×2 (10:32→17:46)
[2017-08-25] MEDS ORDERED: PIPERACILLIN/TAZOBACTAM 3,375 MG in SODIUM CHLORIDE 0.9% 100 ML IV SCH (19:00)
[2017-08-25] MEDS: DOXYCYCLINE HYCLATE INJ 100 MG in SODIUM CHLORIDE 0.9% 100 ML IV SCH (21:06)
[2017-08-26] MEDS: POTASSIUM CHLORIDE INJ 40 MEQ in DEXTROSE 5% NACL 0.22% 1,000 ML IV SCH ×2 (01:59→18:31)
[2017-08-26] MEDS: MEROPENEM 1,000 MG in SYRINGE 1 EACH IV SCH ×3 (01:59→16:13)
[2017-08-26] MEDS: POTASSIUM CHLORIDE RIDER 10 MEQ in PREMIX 1 EACH IV PRN ×6 (02:01→14:43)
[2017-08-26] MEDS: VANCOMYCIN INJ 1,000 MG in SODIUM CHLORIDE 0.9% 250 ML IV SCH (02:06)
[2017-08-26 05:57] LABS: Basophils % 0.4 % (0.0-0.8); Eosinophils # 0.4 10*3/uL (0.0-0.87); Eosinophils % 4.4 % (0.00-10.9); Hematocrit 40.4 VOL% (42.0-52.0); Hemoglobin 12.6 GM/DL (14.0-18.0); Immature Granulocytes % 0.3 %; Immature Granulocytes Absolute 0.03 #; Lymphocytes # 1.8 10*3/uL (1.4-4.0); Lymphocytes % 18.5 % (21.2-54.2); Mean Corpuscular HGB Conc 31.2 GM/DL (32-36); Mean Corpuscular Hemoglobin 27 PG (27-34); Mean Platelet Volume 13.1 FL (9.6-12.0); Monocytes # 0.6 10*3/uL (0.11-0.8); Monocytes % 6.6 % (1.7-12.7); Neutrophils # 6.7 10*3/uL (1.4-7.4); Neutrophils % 69.8 % (38.7-73.9); Platelet Count 197 T/CUMM (130-400); Red Cell Distribution Width 15.3 % (9.3-17.3); White Blood Count 9.6 T/CUMM (4-12)
[2017-08-26 06:25] LABS: Calcium 8.7 MG/DL (8.5-10.1); Osmolality,Calculated 286.6 MOS/KG (273-304); Potassium 3.1 MMOL/L (3.5-5.1); Prealbumin 20.3 MG/DL (20-40)
[2017-08-26 06:38] LABS: Albumin 3.2 G/DL (3.4-5.0); Bilirubin,Total 0.7 MG/DL (0.2-1.0); Calcium 8.5 MG/DL (8.5-10.1); Osmolality,Calculated 285.6 MOS/KG (273-304); Potassium 3.1 MMOL/L (3.5-5.1); Total Protein 6.8 G/DL (6.4-8.3)
[2017-08-26] MEDS: PANTOPRAZOLE 40 MG VIAL IV SCH (09:47)
[2017-08-26] MEDS: DOXYCYCLINE HYCLATE INJ 100 MG in SODIUM CHLORIDE 0.9% 100 ML IV SCH ×2 (09:54→20:47)
[2017-08-26] MEDS ORDERED: SODIUM PHOSPHATE INJ 15 MMOL in SODIUM CHLORIDE 0.9% 250 ML IV ONE (10:00)
[2017-08-26] MEDS: BACLOFEN 20 MG TABLET PO SCH ×2 (14:38→20:47)
[2017-08-26] MEDS ORDERED: clonazePAM 0.5 MG TABLET PO ONE (14:45)
[2017-08-26] MEDS: IBUPROFEN 100 MG/5 ML UDCUP PO PRN (20:46)
[2017-08-26] MEDS ORDERED: clonazePAM 0.5 MG TABLET PO PRN (21:00)
[2017-08-27] MEDS: MEROPENEM 1,000 MG in SYRINGE 1 EACH IV SCH ×3 (00:50→18:08)
[2017-08-27] MEDS: POTASSIUM CHLORIDE INJ 40 MEQ in DEXTROSE 5% NACL 0.22% 1,000 ML IV SCH (03:48)
[2017-08-27 04:11] LABS: Basophils % 0.3 % (0.0-0.8); Eosinophils # 0.5 10*3/uL (0.0-0.87); Eosinophils % 7.5 % (0.00-10.9); Hematocrit 39.3 VOL% (42.0-52.0); Hemoglobin 12.3 GM/DL (14.0-18.0); Immature Granulocytes % 0.2 %; Immature Granulocytes Absolute 0.01 #; Lymphocytes # 1.7 10*3/uL (1.4-4.0); Lymphocytes % 26.3 % (21.2-54.2); Mean Corpuscular HGB Conc 31.3 GM/DL (32-36); Mean Corpuscular Hemoglobin 27 PG (27-34); Mean Corpuscular Volume 84.7 FL (87-102); Mean Platelet Volume 12.9 FL (9.6-12.0); Monocytes # 0.4 10*3/uL (0.11-0.8); Monocytes % 6.9 % (1.7-12.7); Neutrophils # 3.7 10*3/uL (1.4-7.4); Neutrophils % 58.8 % (38.7-73.9); Platelet Count 218 T/CUMM (130-400); Red Blood Count 4.64 MC/CUMM (3.8-5.5); White Blood Count 6.4 T/CUMM (4-12)
[2017-08-27 04:35] LABS: Albumin 3.1 G/DL (3.4-5.0); Bilirubin,Total 0.5 MG/DL (0.2-1.0); Calcium 8.5 MG/DL (8.5-10.1); Osmolality,Calculated 291.3 MOS/KG (273-304); Potassium 3.1 MMOL/L (3.5-5.1); Total Protein 6.6 G/DL (6.4-8.3)
[2017-08-27] MEDS ORDERED: DEXTROSE 5% 1,000 ML IV SCH (08:30)
[2017-08-27] MEDS ORDERED: SODIUM CHLORIDE 0.45% 1,000 ML IV SCH (09:00)
[2017-08-27] MEDS: DOXYCYCLINE HYCLATE INJ 100 MG in SODIUM CHLORIDE 0.9% 100 ML IV SCH ×2 (10:19→20:50)
[2017-08-27] MEDS: PANTOPRAZOLE 40 MG VIAL IV SCH (10:22)
[2017-08-27] MEDS: POTASSIUM CHLORIDE 20 MEQ/15 ML UDCUP PO SCH (10:24)
[2017-08-27] MEDS: BACLOFEN 20 MG TABLET PO SCH ×2 (10:25→18:08)
[2017-08-28] MEDS: MEROPENEM 1,000 MG in SYRINGE 1 EACH IV SCH ×2 (02:37→08:22)
[2017-08-28] MEDS: BACLOFEN 20 MG TABLET PO SCH ×2 (02:37→08:25)
[2017-08-28 05:10] LABS: Basophils % 0.3 % (0.0-0.8); Eosinophils # 0.4 10*3/uL (0.0-0.87); Eosinophils % 7.1 % (0.00-10.9); Hematocrit 39.7 VOL% (42.0-52.0); Hemoglobin 12.4 GM/DL (14.0-18.0); Immature Granulocytes % 0.2 %; Immature Granulocytes Absolute 0.01 #; Lymphocytes # 1.1 10*3/uL (1.4-4.0); Lymphocytes % 17.7 % (21.2-54.2); Mean Corpuscular HGB Conc 31.2 GM/DL (32-36); Mean Corpuscular Hemoglobin 27 PG (27-34); Mean Corpuscular Volume 86.3 FL (87-102); Mean Platelet Volume 13.1 FL (9.6-12.0); Monocytes # 0.4 10*3/uL (0.11-0.8); Monocytes % 6.7 % (1.7-12.7); Platelet Count 222 T/CUMM (130-400); Red Cell Distribution Width 16.6 % (9.3-17.3); White Blood Count 5.9 T/CUMM (4-12)
[2017-08-28 05:44] LABS: Bilirubin,Total 1.1 MG/DL (0.2-1.0); Calcium 8.6 MG/DL (8.5-10.1); Osmolality,Calculated 290.4 MOS/KG (273-304); Potassium 3.8 MMOL/L (3.5-5.1); Total Protein 6.5 G/DL (6.4-8.3)
[2017-08-28 07:59] VITALS: BP 130/99
[2017-08-28] MEDS: PANTOPRAZOLE 40 MG VIAL IV SCH (08:22)
[2017-08-28] MEDS: DOXYCYCLINE HYCLATE INJ 100 MG in SODIUM CHLORIDE 0.9% 100 ML IV SCH (08:23)
[2017-08-28] MEDS: POTASSIUM CHLORIDE 20 MEQ/15 ML UDCUP PO SCH (08:24)
[2017-08-28] MEDS ORDERED: LACTULOSE 20 GM/30 ML UDCUP PO ONE (09:00)
[2017-08-28] MEDS ORDERED: MAGNESIUM HYDROXIDE SUSP 30 ML UDCUP PO ONE (09:00)
[2017-08-28] MEDS ORDERED: POTASSIUM PHOS/SOD PHOS POWDER 250 MG PACK PO SCH (09:00)
== END 2017-08-28 12:51 | DRG 867 ==
LOC: EDUNIT# → EDBD → N.ED 09:52 → N.EDINP 12:50 → N.2E 14:45
PROVIDERS: ADMIT Hospitalist; ATTEND Hospitalist

== ENCOUNTER 2017-09-29 11:59 | Inpatient (IN) ==
[2017-09-29] MEDS ORDERED: VANCOMYCIN INJ 1,000 MG in SODIUM CHLORIDE 0.9% 250 ML IV STA (12:57)
[2017-09-29 13:37] LABS: Basophils # 0.1 10*3/uL (0.0-0.2); Basophils % 0.7 % (0.0-0.8); Eosinophils # 0.3 10*3/uL (0.0-0.87); Eosinophils % 3.3 % (0.00-10.9); Hematocrit 41.7 VOL% (42.0-52.0); Hemoglobin 13.2 GM/DL (14.0-18.0); Immature Granulocytes % 0.2 %; Immature Granulocytes Absolute 0.02 #; Lymphocytes # 1.7 10*3/uL (1.4-4.0); Lymphocytes % 20.5 % (21.2-54.2); Mean Corpuscular HGB Conc 31.7 GM/DL (32-36); Mean Corpuscular Hemoglobin 27 PG (27-34); Mean Corpuscular Volume 85.3 FL (87-102); Mean Platelet Volume 12.6 FL (9.6-12.0); Monocytes # 0.8 10*3/uL (0.11-0.8); Monocytes % 8.9 % (1.7-12.7); Neutrophils # 5.6 10*3/uL (1.4-7.4); Neutrophils % 66.4 % (38.7-73.9); Platelet Count 332 T/CUMM (130-400); Red Blood Count 4.89 MC/CUMM (3.8-5.5); Red Cell Distribution Width 15.9 % (9.3-17.3); White Blood Count 8.4 T/CUMM (4-12)
[2017-09-29 13:51] LABS: Lactic Acid 1.3 MMOL/L (0.4-2.0)
[2017-09-29 14:01] LABS: Apearance,Urine Slightly Hazy (Clear); Bacteria,Urine Moderate /HPF (Few); Bilirubin,Urine Negative (Negative); Blood, Urine Negative (Negative); Glucose,Urine (UA) Negative (Negative); Ketones,Urine Negative (Negative); Mucus,Urine Occasional /LPF (Occasional); Nitrite,Urine Negative (Negative); Protein,Urine 30 MG/DL; RBC,Urine 12 /HPF (0-4); Urine Color Yellow (Yellow); Urine Specific Gravity 1.017 (1.001-1.035); WBC,Urine 51 /HPF (0-6)
[2017-09-29 14:03] LABS: Albumin 3.2 G/DL (3.4-5.0); Bilirubin,Total 0.5 MG/DL (0.2-1.0); Calcium 9.1 MG/DL (8.5-10.1); Osmolality,Calculated 275.8 MOS/KG (273-304); Potassium 3.9 MMOL/L (3.5-5.1); Total Protein 8.4 G/DL (6.4-8.3)
[2017-09-29] MEDS ORDERED: ACETAMINOPHEN 325 MG TABLET PO PRN (14:18)
[2017-09-29] MEDS: PIPERACILLIN/TAZOBACTAM 3,375 MG in SODIUM CHLORIDE 0.9% 100 ML IV SCH (16:03)
[2017-09-29] MEDS: ENOXAPARIN 40 MG/0.4 ML SYRINGE SUBCUT SCH (21:53)
[2017-09-29] MEDS: VANCOMYCIN INJ 1,000 MG in SODIUM CHLORIDE 0.9% 250 ML IV SCH (22:10)
[2017-09-30] MEDS: PIPERACILLIN/TAZOBACTAM 3,375 MG in SODIUM CHLORIDE 0.9% 100 ML IV SCH ×3 (00:54→17:08)
[2017-09-30 06:31] LABS: Basophils # 0.1 10*3/uL (0.0-0.2); Basophils % 0.7 % (0.0-0.8); Eosinophils # 0.2 10*3/uL (0.0-0.87); Eosinophils % 2.3 % (0.00-10.9); Hematocrit 40.6 VOL% (42.0-52.0); Hemoglobin 12.7 GM/DL (14.0-18.0); Immature Granulocytes % 0.3 %; Immature Granulocytes Absolute 0.03 #; Lymphocytes # 1.2 10*3/uL (1.4-4.0); Lymphocytes % 14.3 % (21.2-54.2); Mean Corpuscular HGB Conc 31.3 GM/DL (32-36); Mean Corpuscular Hemoglobin 27 PG (27-34); Mean Corpuscular Volume 85.3 FL (87-102); Mean Platelet Volume 12.6 FL (9.6-12.0); Monocytes # 0.7 10*3/uL (0.11-0.8); Monocytes % 7.6 % (1.7-12.7); Neutrophils # 6.5 10*3/uL (1.4-7.4); Neutrophils % 74.8 % (38.7-73.9); Platelet Count 325 T/CUMM (130-400); Red Blood Count 4.76 MC/CUMM (3.8-5.5); Red Cell Distribution Width 15.9 % (9.3-17.3); White Blood Count 8.7 T/CUMM (4-12)
[2017-09-30] MEDS: VANCOMYCIN INJ 1,000 MG in SODIUM CHLORIDE 0.9% 250 ML IV SCH ×3 (06:58→21:29)
[2017-09-30 07:03] LABS: Albumin 3.3 G/DL (3.4-5.0); Bilirubin,Total 2.2 MG/DL (0.2-1.0); Calcium 9.6 MG/DL (8.5-10.1); Osmolality,Calculated 282.4 MOS/KG (273-304); Potassium 3.5 MMOL/L (3.5-5.1); Total Protein 8.4 G/DL (6.4-8.3)
[2017-09-30] MEDS ORDERED: ACETAMINOPHEN/CODEINE 120-12 MG/5 ML 12.5 ML UDCUP PEG PRN (13:33)
[2017-09-30] MEDS ORDERED: LIDOCAINE 1% 50 ML VIAL ONE (14:49)
[2017-09-30] MEDS: hydroCHLOROthiazide 12.5 MG CAPSULE PEG SCH (15:02)
[2017-09-30] MEDS: CHOLECALCIFEROL 1,000 UNIT TABLET PEG SCH (15:02)
[2017-09-30] MEDS: PROPRANOLOL 10 MG TABLET PEG SCH ×2 (15:02→21:30)
[2017-09-30] MEDS: POTASSIUM PHOS/SOD PHOS POWDER 250 MG PACK PEG SCH ×2 (15:03→21:31)
[2017-09-30] MEDS: LACTOBACILLUS ACIDOPHILUS/BULGARICUS CHEW TABLET PO SCH ×2 (15:03→21:31)
[2017-09-30] MEDS: BACLOFEN 20 MG TABLET PEG SCH ×2 (15:03→21:30)
[2017-09-30] MEDS: POLYETHYLENE GLYCOL POWDER 17 GM PACK PEG SCH ×2 (15:03→21:29)
[2017-09-30] MEDS: COLLAGENASE OINT 30 GM TUBE TOP SCH (15:16)
[2017-09-30] MEDS ORDERED: fentaNYL 100 MCG/2 ML VIAL ONE (16:35)
[2017-09-30] MEDS ORDERED: MIDAZOLAM 2 MG/2 ML VIAL ONE (16:35)
[2017-09-30] MEDS ORDERED: PROPOFOL 200 MG/20 ML VIAL IV ONE (16:35)
[2017-09-30] MEDS: ENOXAPARIN 40 MG/0.4 ML SYRINGE SUBCUT SCH (21:29)
[2017-09-30] MEDS: clonazePAM 0.5 MG TABLET PEG SCH (21:30)
[2017-10-01] MEDS: PIPERACILLIN/TAZOBACTAM 3,375 MG in SODIUM CHLORIDE 0.9% 100 ML IV SCH ×2 (00:05→08:21)
[2017-10-01] MEDS: VANCOMYCIN INJ 1,000 MG in SODIUM CHLORIDE 0.9% 250 ML IV SCH ×3 (05:07→22:03)
[2017-10-01] MEDS: ALPRAZolam 0.25 MG TABLET PO PRN (05:13)
[2017-10-01] MEDS: hydroCHLOROthiazide 12.5 MG CAPSULE PEG SCH (08:31)
[2017-10-01] MEDS: PROPRANOLOL 10 MG TABLET PEG SCH ×2 (08:32→21:49)
[2017-10-01] MEDS: POLYETHYLENE GLYCOL POWDER 17 GM PACK PEG SCH ×2 (08:32→21:49)
[2017-10-01] MEDS: LACTOBACILLUS ACIDOPHILUS/BULGARICUS CHEW TABLET PO SCH ×2 (08:32→21:49)
[2017-10-01] MEDS: COLLAGENASE OINT 30 GM TUBE TOP SCH (08:32)
[2017-10-01] MEDS: POTASSIUM PHOS/SOD PHOS POWDER 250 MG PACK PEG SCH ×2 (08:32→21:50)
[2017-10-01] MEDS: CHOLECALCIFEROL 1,000 UNIT TABLET PEG SCH (08:32)
[2017-10-01] MEDS: BACLOFEN 20 MG TABLET PEG SCH ×3 (08:32→21:49)
[2017-10-01] MEDS ORDERED: MEROPENEM 1,000 MG in SYRINGE 1 EACH IV SCH (10:00)
[2017-10-01] MEDS ORDERED: ACETAMINOPHEN 325 MG TABLET PEG PRN (10:21)
[2017-10-01] MEDS ORDERED: ACETAMINOPHEN 325 MG TABLET ONE (10:28)
[2017-10-01 10:30] LABS: Lactic Acid 2.1 MMOL/L (0.4-2.0)
[2017-10-01] MEDS: ACETAMINOPHEN 325 MG/10.15 ML UDCUP PEG PRN (10:30)
[2017-10-01] MEDS ORDERED: SODIUM CHLORIDE 0.9% 2,100 ML IV ONE (10:57)
[2017-10-01] MEDS ORDERED: AMIKACIN 500 MG in SODIUM CHLORIDE 0.9% 100 ML IV SCH (11:30)
[2017-10-01] MEDS ORDERED: VANCOMYCIN INJ 1,250 MG in SODIUM CHLORIDE 0.9% 250 ML IV SCH (11:30)
[2017-10-01] MEDS: SODIUM CHLORIDE 0.9% 1,000 ML IV SCH (14:00)
[2017-10-01] MEDS: SODIUM CHLORIDE 0.9% IV SCH (14:25)
[2017-10-01] MEDS: AMIKACIN IV SCH (14:25)
[2017-10-01] MEDS: IBUPROFEN 100 MG/5 ML UDCUP PEG SCH ×2 (16:03→21:50)
[2017-10-01] MEDS: ENOXAPARIN 40 MG/0.4 ML SYRINGE SUBCUT SCH (21:49)
[2017-10-01] MEDS: clonazePAM 0.5 MG TABLET PEG SCH (21:49)
[2017-10-02] MEDS: SODIUM CHLORIDE 0.9% 1,000 ML IV SCH ×4 (02:06→21:12)
[2017-10-02 04:44] LABS: Basophils # 0.1 10*3/uL (0.0-0.2); Hematocrit 29.6 VOL% (42.0-52.0); Immature Granulocytes % 0.3 %; Immature Granulocytes Absolute 0.02 #; Lymphocytes # 1.8 10*3/uL (1.4-4.0); Lymphocytes % 25.4 % (21.2-54.2); Mean Corpuscular HGB Conc 30.4 GM/DL (32-36); Mean Corpuscular Hemoglobin 27 PG (27-34); Mean Corpuscular Volume 88.9 FL (87-102); Mean Platelet Volume 12.5 FL (9.6-12.0); Monocytes % 13.6 % (1.7-12.7); Neutrophils # 4.3 10*3/uL (1.4-7.4); Neutrophils % 59.7 % (38.7-73.9); Platelet Count 284 T/CUMM (130-400); Red Blood Count 3.33 MC/CUMM (3.8-5.5); Red Cell Distribution Width 16.1 % (9.3-17.3); White Blood Count 7.2 T/CUMM (4-12)
[2017-10-02 05:14] LABS: Albumin 2.4 G/DL (3.4-5.0); Bilirubin,Total 0.6 MG/DL (0.2-1.0); Calcium 7.4 MG/DL (8.5-10.1); Osmolality,Calculated 294.1 MOS/KG (273-304); Potassium 2.6 MMOL/L (3.5-5.1); Total Protein 5.9 G/DL (6.4-8.3)
[2017-10-02] MEDS: VANCOMYCIN INJ 1,000 MG in SODIUM CHLORIDE 0.9% 250 ML IV SCH ×3 (05:51→22:51)
[2017-10-02] MEDS ORDERED: MAGNESIUM SULF RIDER 2 GM in PREMIX 1 EACH IV PRN (07:10)
[2017-10-02] MEDS ORDERED: MAGNESIUM SULF RIDER 4 GM in PREMIX 1 EACH IV PRN (07:10)
[2017-10-02] MEDS ORDERED: CALCIUM GLUCONATE 1,000 MG in SODIUM CHLORIDE 0.9% 100 ML IV ONE (08:00)
[2017-10-02] MEDS ORDERED: SILVER NITRATE STICK 1 EACH TOP ONE (08:01)
[2017-10-02] MEDS: hydroCHLOROthiazide 12.5 MG CAPSULE PEG SCH (09:52)
[2017-10-02] MEDS: POLYETHYLENE GLYCOL POWDER 17 GM PACK PEG SCH ×2 (09:52→21:14)
[2017-10-02] MEDS: ZINC SULFATE 220 MG CAPSULE PO SCH (10:34)
[2017-10-02] MEDS: CHOLECALCIFEROL 1,000 UNIT TABLET PEG SCH (10:35)
[2017-10-02] MEDS: PROPRANOLOL 10 MG TABLET PEG SCH ×2 (10:35→21:57)
[2017-10-02] MEDS: POTASSIUM PHOS/SOD PHOS POWDER 250 MG PACK PEG SCH ×2 (10:35→21:58)
[2017-10-02] MEDS: BACLOFEN 20 MG TABLET PEG SCH ×3 (10:35→21:58)
[2017-10-02] MEDS: MULTIVITAMIN LIQUID (CENTRUM) 60 ML BOTTLE PEG SCH (10:36)
[2017-10-02] MEDS: COLLAGENASE OINT 30 GM TUBE TOP SCH (10:42)
[2017-10-02] MEDS: POTASSIUM CHLORIDE RIDER 10 MEQ in PREMIX 1 EACH IV PRN ×4 (11:25→19:15)
[2017-10-02] MEDS: LACTOBACILLUS ACIDOPHILUS/BULGARICUS CHEW TABLET PO SCH ×2 (11:57→21:58)
[2017-10-02] MEDS: IBUPROFEN 100 MG/5 ML UDCUP PEG SCH ×3 (12:52→21:58)
[2017-10-02] MEDS: AMIKACIN IV SCH (18:09)
[2017-10-02] MEDS: SODIUM CHLORIDE 0.9% IV SCH (18:09)
[2017-10-02] MEDS: clonazePAM 0.5 MG TABLET PEG SCH (21:57)
[2017-10-02] MEDS: ENOXAPARIN 40 MG/0.4 ML SYRINGE SUBCUT SCH (21:58)
[2017-10-02] MEDS: ONDANSETRON 4 MG/2 ML VIAL IV PRN (22:06)
[2017-10-03 06:02] LABS: Basophils # 0.1 10*3/uL (0.0-0.2); Basophils % 0.6 % (0.0-0.8); Eosinophils % 0.5 % (0.00-10.9); Hematocrit 32.7 VOL% (42.0-52.0); Hemoglobin 9.6 GM/DL (14.0-18.0); Immature Granulocytes % 0.5 %; Immature Granulocytes Absolute 0.04 #; Lymphocytes # 1.4 10*3/uL (1.4-4.0); Lymphocytes % 16.5 % (21.2-54.2); Mean Corpuscular HGB Conc 29.4 GM/DL (32-36); Mean Corpuscular Hemoglobin 27 PG (27-34); Mean Corpuscular Volume 93.4 FL (87-102); Mean Platelet Volume 12.7 FL (9.6-12.0); Monocytes # 0.8 10*3/uL (0.11-0.8); Monocytes % 8.8 % (1.7-12.7); Neutrophils # 6.3 10*3/uL (1.4-7.4); Neutrophils % 73.1 % (38.7-73.9); Platelet Count 232 T/CUMM (130-400); Red Cell Distribution Width 15.9 % (9.3-17.3); White Blood Count 8.6 T/CUMM (4-12)
[2017-10-03 06:17] LABS: Albumin 2.7 G/DL (3.4-5.0); Bilirubin,Total 0.7 MG/DL (0.2-1.0); Calcium 8.2 MG/DL (8.5-10.1); Osmolality,Calculated 284.7 MOS/KG (273-304); Potassium 3.1 MMOL/L (3.5-5.1); Total Protein 6.4 G/DL (6.4-8.3)
[2017-10-03] MEDS: VANCOMYCIN INJ 1,000 MG in SODIUM CHLORIDE 0.9% 250 ML IV SCH (06:23)
[2017-10-03] MEDS: SODIUM CHLORIDE 0.9% 1,000 ML IV SCH ×3 (10:42→21:34)
[2017-10-03] MEDS: POLYETHYLENE GLYCOL POWDER 17 GM PACK PEG SCH ×2 (10:43→21:35)
[2017-10-03] MEDS: COLLAGENASE OINT 30 GM TUBE TOP SCH (10:43)
[2017-10-03] MEDS ORDERED: FLUCONAZOLE INJ 200 MG in PREMIX 1 EACH IV ONE (11:12)
[2017-10-03] MEDS: IBUPROFEN 100 MG/5 ML UDCUP PEG SCH ×3 (12:36→21:46)
[2017-10-03] MEDS: BACLOFEN 20 MG TABLET PEG SCH ×3 (12:36→21:35)
[2017-10-03] MEDS: ZINC SULFATE 220 MG CAPSULE PO SCH (12:36)
[2017-10-03] MEDS: CHOLECALCIFEROL 1,000 UNIT TABLET PEG SCH (12:36)
[2017-10-03] MEDS: MULTIVITAMIN LIQUID (CENTRUM) 60 ML BOTTLE PEG SCH (12:36)
[2017-10-03] MEDS: PROPRANOLOL 10 MG TABLET PEG SCH ×2 (12:37→21:35)
[2017-10-03] MEDS: hydroCHLOROthiazide 12.5 MG CAPSULE PEG SCH (12:37)
[2017-10-03] MEDS: POTASSIUM PHOS/SOD PHOS POWDER 250 MG PACK PEG SCH ×2 (12:37→21:35)
[2017-10-03] MEDS: LACTOBACILLUS ACIDOPHILUS/BULGARICUS CHEW TABLET PO SCH ×2 (12:37→21:37)
[2017-10-03] MEDS ORDERED: VANCOMYCIN INJ 1,250 MG in SODIUM CHLORIDE 0.9% 250 ML IV SCH (14:00)
[2017-10-03] MEDS: NAFCILLIN 2,000 MG in SODIUM CHLORIDE 0.9% 100 ML IV SCH ×3 (15:09→21:44)
[2017-10-03] MEDS: AMIKACIN IV SCH (17:22)
[2017-10-03] MEDS: SODIUM CHLORIDE 0.9% IV SCH (17:22)
[2017-10-03] MEDS: clonazePAM 0.5 MG TABLET PEG SCH (21:35)
[2017-10-03] MEDS: ENOXAPARIN 40 MG/0.4 ML SYRINGE SUBCUT SCH (21:35)
[2017-10-03] MEDS: ALPRAZolam 0.25 MG TABLET PO PRN (21:45)
[2017-10-04] MEDS: NAFCILLIN 2,000 MG in SODIUM CHLORIDE 0.9% 100 ML IV SCH ×6 (02:08→21:26)
[2017-10-04] MEDS: SODIUM CHLORIDE 0.9% 1,000 ML IV SCH ×3 (02:09→15:31)
[2017-10-04 04:55] LABS: Basophils # 0.1 10*3/uL (0.0-0.2); Basophils % 0.4 % (0.0-0.8); Eosinophils % 0.3 % (0.00-10.9); Hematocrit 33.4 VOL% (42.0-52.0); Hemoglobin 10.3 GM/DL (14.0-18.0); Immature Granulocytes % 0.4 %; Immature Granulocytes Absolute 0.05 #; Lymphocytes # 1.5 10*3/uL (1.4-4.0); Lymphocytes % 12.7 % (21.2-54.2); Mean Corpuscular HGB Conc 30.8 GM/DL (32-36); Mean Corpuscular Hemoglobin 27 PG (27-34); Mean Corpuscular Volume 86.1 FL (87-102); Mean Platelet Volume 12.7 FL (9.6-12.0); Monocytes # 1.2 10*3/uL (0.11-0.8); Monocytes % 9.8 % (1.7-12.7); NRBC # 0.02 10*3/uL; Neutrophils # 9.2 10*3/uL (1.4-7.4); Neutrophils % 76.4 % (38.7-73.9); Platelet Count 311 T/CUMM (130-400); Red Blood Count 3.88 MC/CUMM (3.8-5.5); Red Cell Distribution Width 15.9 % (9.3-17.3); White Blood Count 12.1 T/CUMM (4-12)
[2017-10-04 05:22] LABS: Albumin 2.9 G/DL (3.4-5.0); Bilirubin,Total 0.7 MG/DL (0.2-1.0); Calcium 7.8 MG/DL (8.5-10.1); Osmolality,Calculated 292.4 MOS/KG (273-304); Total Protein 6.6 G/DL (6.4-8.3)
[2017-10-04 05:41] LABS: Prealbumin 17.7 MG/DL (20-40)
[2017-10-04 05:50] LABS: Potassium 2.2 MMOL/L (3.5-5.1)
[2017-10-04] MEDS: POTASSIUM CHLORIDE RIDER 10 MEQ in PREMIX 1 EACH IV PRN ×6 (06:21→19:15)
[2017-10-04] MEDS: IBUPROFEN 100 MG/5 ML UDCUP PEG SCH ×3 (10:04→21:25)
[2017-10-04] MEDS: hydroCHLOROthiazide 12.5 MG CAPSULE PEG SCH (10:05)
[2017-10-04] MEDS: ZINC SULFATE 220 MG CAPSULE PO SCH (10:05)
[2017-10-04] MEDS: PROPRANOLOL 10 MG TABLET PEG SCH ×2 (10:05→21:24)
[2017-10-04] MEDS: MULTIVITAMIN LIQUID (CENTRUM) 60 ML BOTTLE PEG SCH (10:05)
[2017-10-04] MEDS: CHOLECALCIFEROL 1,000 UNIT TABLET PEG SCH (10:05)
[2017-10-04] MEDS: BACLOFEN 20 MG TABLET PEG SCH ×3 (10:05→21:25)
[2017-10-04] MEDS: LACTOBACILLUS ACIDOPHILUS/BULGARICUS CHEW TABLET PO SCH ×2 (10:05→21:25)
[2017-10-04] MEDS: COLLAGENASE OINT 30 GM TUBE TOP SCH (10:06)
[2017-10-04] MEDS: POTASSIUM PHOS/SOD PHOS POWDER 250 MG PACK PEG SCH ×2 (10:06→21:26)
[2017-10-04] MEDS: POLYETHYLENE GLYCOL POWDER 17 GM PACK PEG SCH ×2 (10:06→21:25)
[2017-10-04] MEDS ORDERED: LOPERAMIDE 0.2 MG/ML 30 ML/BOTTLE PO PRN (10:34)
[2017-10-04] MEDS: SODIUM CHLOR 0.9% KCL 40 MEQ 40 MEQ/1,000 ML BAG IV SCH (16:05)
[2017-10-04] MEDS: AMIKACIN IV SCH (16:06)
[2017-10-04] MEDS: SODIUM CHLORIDE 0.9% IV SCH (16:06)
[2017-10-04] MEDS: clonazePAM 0.5 MG TABLET PEG SCH (21:24)
[2017-10-04] MEDS: ENOXAPARIN 40 MG/0.4 ML SYRINGE SUBCUT SCH (21:25)
[2017-10-05] MEDS: POTASSIUM CHLORIDE RIDER 10 MEQ in PREMIX 1 EACH IV PRN ×8 (00:07→23:34)
[2017-10-05] MEDS: NAFCILLIN 2,000 MG in SODIUM CHLORIDE 0.9% 100 ML IV SCH ×6 (02:13→20:57)
[2017-10-05 07:37] LABS: Calcium 8.2 MG/DL (8.5-10.1); Osmolality,Calculated 294.3 MOS/KG (273-304); Potassium 3.1 MMOL/L (3.5-5.1)
[2017-10-05] MEDS: SODIUM CHLOR 0.9% KCL 40 MEQ 40 MEQ/1,000 ML BAG IV SCH ×2 (08:31→11:13)
[2017-10-05] MEDS: PROPRANOLOL 10 MG TABLET PEG SCH ×2 (11:09→21:00)
[2017-10-05] MEDS: BACLOFEN 20 MG TABLET PEG SCH ×3 (11:09→21:01)
[2017-10-05] MEDS: hydroCHLOROthiazide 12.5 MG CAPSULE PEG SCH (11:09)
[2017-10-05] MEDS: MULTIVITAMIN LIQUID (CENTRUM) 60 ML BOTTLE PEG SCH (11:09)
[2017-10-05] MEDS: LACTOBACILLUS ACIDOPHILUS/BULGARICUS CHEW TABLET PO SCH ×2 (11:09→21:01)
[2017-10-05] MEDS: CHOLECALCIFEROL 1,000 UNIT TABLET PEG SCH (11:10)
[2017-10-05] MEDS: COLLAGENASE OINT 30 GM TUBE TOP SCH (11:10)
[2017-10-05] MEDS: ZINC SULFATE 220 MG CAPSULE PO SCH (11:10)
[2017-10-05] MEDS: POLYETHYLENE GLYCOL POWDER 17 GM PACK PEG SCH (11:10)
[2017-10-05] MEDS: IBUPROFEN 100 MG/5 ML UDCUP PEG SCH ×3 (11:10→21:01)
[2017-10-05] MEDS: POTASSIUM PHOS/SOD PHOS POWDER 250 MG PACK PEG SCH ×2 (11:10→21:02)
[2017-10-05] MEDS ORDERED: POTASSIUM CHLORIDE INJ 40 MEQ in SODIUM CHLORIDE 0.45% 1,000 ML IV SCH (14:30)
[2017-10-05] MEDS ORDERED: POTASSIUM CHLORIDE 20 MEQ PACK PO SCH (14:30)
[2017-10-05] MEDS: DEXTROSE 5% NACL 0.45% 1,000 ML IV SCH (15:33)
[2017-10-05] MEDS: CLOTRIMAZOLE/BETAMETHASONE CREAM 15 GM TUBE TOP SCH ×2 (15:36→21:01)
[2017-10-05] MEDS: POTASSIUM CHLORIDE 20 MEQ PACK PEG SCH (15:42)
[2017-10-05] MEDS: AMIKACIN IV SCH (17:53)
[2017-10-05] MEDS: SODIUM CHLORIDE 0.9% IV SCH (17:53)
[2017-10-05] MEDS: clonazePAM 0.5 MG TABLET PEG SCH (21:00)
[2017-10-05] MEDS: ENOXAPARIN 40 MG/0.4 ML SYRINGE SUBCUT SCH (21:01)
[2017-10-05] MEDS: ONDANSETRON 4 MG/2 ML VIAL IV PRN (21:20)
[2017-10-06] MEDS: POTASSIUM CHLORIDE RIDER 10 MEQ in PREMIX 1 EACH IV PRN ×3 (00:37→09:14)
[2017-10-06] MEDS: NAFCILLIN 2,000 MG in SODIUM CHLORIDE 0.9% 100 ML IV SCH ×6 (03:21→23:30)
[2017-10-06 06:13] LABS: Basophils # 0.1 10*3/uL (0.0-0.2); Basophils % 0.5 % (0.0-0.8); Eosinophils % 0.2 % (0.00-10.9); Hematocrit 33.2 VOL% (42.0-52.0); Hemoglobin 10.6 GM/DL (14.0-18.0); Immature Granulocytes % 0.3 %; Immature Granulocytes Absolute 0.04 #; Lymphocytes # 2.1 10*3/uL (1.4-4.0); Lymphocytes % 15.7 % (21.2-54.2); Mean Corpuscular HGB Conc 31.9 GM/DL (32-36); Mean Corpuscular Hemoglobin 27 PG (27-34); Mean Corpuscular Volume 85.8 FL (87-102); Mean Platelet Volume 12.8 FL (9.6-12.0); Monocytes # 1.2 10*3/uL (0.11-0.8); Monocytes % 8.7 % (1.7-12.7); Neutrophils % 74.6 % (38.7-73.9); Platelet Count 286 T/CUMM (130-400); Red Blood Count 3.87 MC/CUMM (3.8-5.5); Red Cell Distribution Width 17.7 % (9.3-17.3); White Blood Count 13.3 T/CUMM (4-12)
[2017-10-06 06:31] LABS: Calcium 8.4 MG/DL (8.5-10.1); Osmolality,Calculated 298.4 MOS/KG (273-304); Potassium 3.4 MMOL/L (3.5-5.1)
[2017-10-06] MEDS: DEXTROSE 5% NACL 0.45% 1,000 ML IV SCH ×2 (07:20→19:20)
[2017-10-06] MEDS: MULTIVITAMIN LIQUID (CENTRUM) 60 ML BOTTLE PEG SCH (09:14)
[2017-10-06] MEDS: POTASSIUM CHLORIDE 20 MEQ PACK PEG SCH (09:17)
[2017-10-06] MEDS: CHOLECALCIFEROL 1,000 UNIT TABLET PEG SCH (09:17)
[2017-10-06] MEDS: BACLOFEN 20 MG TABLET PEG SCH ×3 (09:17→23:18)
[2017-10-06] MEDS: PROPRANOLOL 10 MG TABLET PEG SCH ×2 (09:17→23:22)
[2017-10-06] MEDS: LACTOBACILLUS ACIDOPHILUS/BULGARICUS CHEW TABLET PO SCH ×2 (09:17→23:21)
[2017-10-06] MEDS: ZINC SULFATE 220 MG CAPSULE PO SCH (09:17)
[2017-10-06] MEDS: POTASSIUM PHOS/SOD PHOS POWDER 250 MG PACK PEG SCH ×2 (09:17→23:20)
[2017-10-06] MEDS: CLOTRIMAZOLE/BETAMETHASONE CREAM 15 GM TUBE TOP SCH ×2 (09:18→23:20)
[2017-10-06] MEDS: hydroCHLOROthiazide 12.5 MG CAPSULE PEG SCH (09:18)
[2017-10-06] MEDS: IBUPROFEN 100 MG/5 ML UDCUP PEG SCH ×3 (09:18→23:17)
[2017-10-06] MEDS: COLLAGENASE OINT 30 GM TUBE TOP SCH (09:19)
[2017-10-06] MEDS: ACETAMINOPHEN 325 MG/10.15 ML UDCUP PEG PRN ×2 (11:52→16:35)
[2017-10-06] MEDS ORDERED: METOPROLOL TARTRATE 5 MG/5 ML VIAL IV PRN ×2 (15:46→17:09)
[2017-10-06] MEDS: AMIKACIN IV SCH ×2 (16:14→18:40)
[2017-10-06] MEDS: SODIUM CHLORIDE 0.9% IV SCH ×2 (16:14→18:40)
[2017-10-06] MEDS: ALPRAZolam 0.25 MG TABLET PO PRN (16:29)
[2017-10-06] MEDS ORDERED: SODIUM CHLORIDE 0.9% 2,100 ML IV ONE ×2 (17:05→19:03)
[2017-10-06 17:56] LABS: Basophils # 0.1 10*3/uL (0.0-0.2); Basophils % 0.5 % (0.0-0.8); Eosinophils % 0.1 % (0.00-10.9); Hemoglobin 11.6 GM/DL (14.0-18.0); Immature Granulocytes % 0.5 %; Immature Granulocytes Absolute 0.09 #; Lymphocytes # 1.1 10*3/uL (1.4-4.0); Mean Corpuscular HGB Conc 29.7 GM/DL (32-36); Mean Corpuscular Hemoglobin 27 PG (27-34); Mean Corpuscular Volume 89.9 FL (87-102); Monocytes # 1.2 10*3/uL (0.11-0.8); Monocytes % 6.3 % (1.7-12.7); NRBC # 0.07 10*3/uL; Neutrophils # 15.8 10*3/uL (1.4-7.4); Neutrophils % 86.6 % (38.7-73.9); Platelet Count 279 T/CUMM (130-400); Red Blood Count 4.34 MC/CUMM (3.8-5.5); White Blood Count 18.2 T/CUMM (4-12)
[2017-10-06 18:26] LABS: Lactic Acid 5.1 MMOL/L (0.4-2.0)
[2017-10-06 18:32] LABS: Blood Urea Nitrogen 32 MG/DL (7-18); Calcium 8.7 MG/DL (8.5-10.1); Glucose 162 MG/DL (74-106); Osmolality,Calculated 315.4 MOS/KG (273-304); Potassium 3.3 MMOL/L (3.5-5.1); Sodium 154 MMOL/L (136-145)
[2017-10-06] MEDS ORDERED: NOREPINEPHRINE 8 MG in SODIUM CHLORIDE 0.9% 242 ML IV PRN (18:57)
[2017-10-06] MEDS ORDERED: SODIUM CHLORIDE 0.9% 2,000 ML IV ONE (18:57)
[2017-10-06] MEDS ORDERED: LACTATED RINGERS 2,100 ML IV ONE (19:03)
[2017-10-06 19:28] LABS: ABG Base Excess -0.6 MMOL/L (-2.5-2.5); ABG HCO3 23.9 MMOL/L (20-26); ABG Oxygen Saturation 99.8 % (95-100); ABG PCO2 44.3 MM HG (35-48); ABG PH 7.359 (7.35-7.45); ABG TCO2 22.6 MMOL/L (23-27); Allen Test Positive
[2017-10-06 19:32] LABS: Apearance,Urine CLOUDY (Clear); Bacteria,Urine Occasional /HPF (Few); Bilirubin,Urine Negative (Negative); Blood, Urine Negative (Negative); Glucose,Urine (UA) Negative (Negative); Ketones,Urine Negative (Negative); Mucus,Urine Occasional /LPF (Occasional); Nitrite,Urine Negative (Negative); Protein,Urine Negative; RBC,Urine 33 /HPF (0-4); Squamous Epithelial Cell,Urine Occasional /HPF (0-10); Transitional Epi Cells,Urine Occasional /HPF (<1); Urine Color Yellow (Yellow); Urine Specific Gravity 1.015 (1.001-1.035); Urine Urobilinogen < 2.0 EU/DL (0.2-1.0); WBC,Urine 26 /HPF (0-6); White Blood Cell Casts,Urine 13 /LPF (<1)
[2017-10-06] MEDS ORDERED: ETOMIDATE 20 MG/10 ML VIAL IV ONE ×2 (19:46→20:59)
[2017-10-06] MEDS ORDERED: VECURONIUM 10 MG VIAL IV ONE ×2 (19:46→20:59)
[2017-10-06] MEDS ORDERED: PROPOFOL 1,000 MG/100 ML BOTTLE IV ONE (19:53)
[2017-10-06] MEDS ORDERED: NOREPINEPHRINE 4 MG/4 ML VIAL IV ONE (20:10)
[2017-10-06] MEDS ORDERED: fentaNYL 100 MCG/2 ML VIAL IV PRN (20:59)
[2017-10-06] MEDS ORDERED: ALBUTEROL/IPRATROPIUM 3 ML NEB RESP TX PRN (21:00)
[2017-10-06 21:08] LABS: ABG Base Excess 0.7 MMOL/L (-2.5-2.5); ABG HCO3 25.1 MMOL/L (20-26); ABG Oxygen Saturation 99.5 % (95-100); ABG PCO2 38.7 MM HG (35-48); ABG PH 7.419 (7.35-7.45); ABG TCO2 22.9 MMOL/L (23-27)
[2017-10-06 22:04] LABS: Basophils # 0.1 10*3/uL (0.0-0.2); Basophils % 0.6 % (0.0-0.8); Hematocrit 35.1 VOL% (42.0-52.0); Hemoglobin 10.6 GM/DL (14.0-18.0); Immature Granulocytes % 0.3 %; Immature Granulocytes Absolute 0.04 #; Lymphocytes # 1.3 10*3/uL (1.4-4.0); Lymphocytes % 8.4 % (21.2-54.2); Mean Corpuscular HGB Conc 30.2 GM/DL (32-36); Mean Corpuscular Hemoglobin 27 PG (27-34); Mean Corpuscular Volume 90.5 FL (87-102); Mean Platelet Volume 13.9 FL (9.6-12.0); Monocytes # 1.3 10*3/uL (0.11-0.8); Monocytes % 8.5 % (1.7-12.7); NRBC # 0.04 10*3/uL; Neutrophils # 12.3 10*3/uL (1.4-7.4); Neutrophils % 82.2 % (38.7-73.9); Platelet Count 265 T/CUMM (130-400); Red Blood Count 3.88 MC/CUMM (3.8-5.5); Red Cell Distribution Width 18.5 % (9.3-17.3); White Blood Count 14.9 T/CUMM (4-12)
[2017-10-06] MEDS: PROPOFOL 1,000 MG/100 ML BOTTLE IV SCH (22:21)
[2017-10-06] MEDS: DEXTROSE 5% 1,000 ML IV SCH (22:22)
[2017-10-06] MEDS ORDERED: NOREPINEPHRINE 32 MG in SODIUM CHLORIDE 0.9% 468 ML IV PRN (22:31)
[2017-10-06 22:35] LABS: Band Neutrophils 7 % (0-10); Lymphocytes 7 % (20-55); Segmented Neutrophils 78 % (50-85); Total Cells Counted 100
[2017-10-06 22:36] LABS: Albumin 2.4 G/DL (3.4-5.0); Calcium 7.6 MG/DL (8.5-10.1); Osmolality,Calculated 317.3 MOS/KG (273-304); Potassium 3.2 MMOL/L (3.5-5.1); Total Protein 5.4 G/DL (6.4-8.3)
[2017-10-06 22:36] LABS: Platelet Estimate Normal
[2017-10-06] MEDS ORDERED: POTASSIUM CHLORIDE RIDER 20 MEQ in PREMIX 1 EACH IV PRN (22:46)
[2017-10-06 22:52] LABS: Hematocrit 29.6 VOL% (42.0-52.0); Hemoglobin 8.9 GM/DL (14.0-18.0)
[2017-10-06] MEDS: clonazePAM 0.5 MG TABLET PEG SCH (23:18)
[2017-10-06] MEDS ORDERED: ALBUMIN 25% 50 GM in PREMIX 1 EACH IV ONE (23:18)
[2017-10-06] MEDS: ENOXAPARIN 40 MG/0.4 ML SYRINGE SUBCUT SCH (23:19)
[2017-10-06] MEDS: HYDROCORTISONE 100 MG VIAL IV SCH (23:19)
[2017-10-06] MEDS ORDERED: LACTATED RINGERS 1,000 ML IV ONE (23:19)
[2017-10-06] MEDS: FLUCONAZOLE INJ 400 MG in PREMIX 1 EACH IV SCH (23:44)
[2017-10-06] MEDS: POTASSIUM CHLORIDE RIDER 20 MEQ in PREMIX 1 EACH IV PRN (23:52)
[2017-10-07] MEDS: ALBUTEROL/IPRATROPIUM 3 ML NEB RESP TX SCH ×3 (00:53→12:58)
[2017-10-07] MEDS: POTASSIUM CHLORIDE RIDER 20 MEQ in PREMIX 1 EACH IV PRN ×4 (01:47→10:00)
[2017-10-07] MEDS: PROPOFOL 1,000 MG/100 ML BOTTLE IV SCH ×2 (02:00→07:57)
[2017-10-07] MEDS: HYDROCORTISONE 100 MG VIAL IV SCH ×4 (03:08→21:33)
[2017-10-07] MEDS: NAFCILLIN 2,000 MG in SODIUM CHLORIDE 0.9% 100 ML IV SCH ×6 (03:09→22:00)
[2017-10-07 05:06] LABS: ABG Base Excess -1.5 MMOL/L (-2.5-2.5); ABG HCO3 22.1 MMOL/L (20-26); ABG Oxygen Saturation 98.7 % (95-100); ABG PCO2 32.5 MM HG (35-48); ABG TCO2 23.1 MMOL/L (23-27)
[2017-10-07 05:11] LABS: Basophils % 0.3 % (0.0-0.8); Hematocrit 24.9 VOL% (42.0-52.0); Hemoglobin 7.5 GM/DL (14.0-18.0); Immature Granulocytes % 0.5 %; Immature Granulocytes Absolute 0.04 #; Lymphocytes # 1.2 10*3/uL (1.4-4.0); Lymphocytes % 13.5 % (21.2-54.2); Mean Corpuscular HGB Conc 30.1 GM/DL (32-36); Mean Corpuscular Hemoglobin 27 PG (27-34); Mean Corpuscular Volume 90.5 FL (87-102); Monocytes # 0.9 10*3/uL (0.11-0.8); Monocytes % 10.1 % (1.7-12.7); Neutrophils # 6.6 10*3/uL (1.4-7.4); Neutrophils % 75.6 % (38.7-73.9); Platelet Count 167 T/CUMM (130-400); Red Blood Count 2.75 MC/CUMM (3.8-5.5); Red Cell Distribution Width 18.1 % (9.3-17.3); White Blood Count 8.7 T/CUMM (4-12)
[2017-10-07 05:32] LABS: Calcium 7.5 MG/DL (8.5-10.1); Osmolality,Calculated 316.4 MOS/KG (273-304)
[2017-10-07 05:43] LABS: Atypical Lymphocytes Few; Platelet Estimate Normal
[2017-10-07] MEDS ORDERED: CALCIUM GLUCONATE 2,000 MG in SODIUM CHLORIDE 0.9% 100 ML IV ONE (06:18)
[2017-10-07] MEDS: PROPRANOLOL 10 MG TABLET PEG SCH ×2 (09:10→21:32)
[2017-10-07] MEDS: CHOLECALCIFEROL 1,000 UNIT TABLET PEG SCH (09:11)
[2017-10-07] MEDS: POTASSIUM PHOS/SOD PHOS POWDER 250 MG PACK PEG SCH ×2 (09:11→21:33)
[2017-10-07] MEDS: ZINC SULFATE 220 MG CAPSULE PO SCH (09:11)
[2017-10-07] MEDS: POTASSIUM CHLORIDE 20 MEQ PACK PEG SCH (09:11)
[2017-10-07] MEDS: BACLOFEN 20 MG TABLET PEG SCH ×3 (09:11→21:32)
[2017-10-07] MEDS: IBUPROFEN 100 MG/5 ML UDCUP PEG SCH ×3 (09:12→20:38)
[2017-10-07] MEDS: CLOTRIMAZOLE/BETAMETHASONE CREAM 15 GM TUBE TOP SCH ×2 (09:13→21:32)
[2017-10-07] MEDS: COLLAGENASE OINT 30 GM TUBE TOP SCH (09:30)
[2017-10-07] MEDS: LACTOBACILLUS ACIDOPHILUS/BULGARICUS CHEW TABLET PO SCH ×2 (09:30→21:32)
[2017-10-07] MEDS ORDERED: SODIUM CHLORIDE 0.9% IV SCH (10:00)
[2017-10-07] MEDS ORDERED: AMIKACIN IV SCH (10:00)
[2017-10-07] MEDS: DEXTROSE 5% 1,000 ML IV SCH ×2 (10:15→19:38)
[2017-10-07] MEDS: POTASSIUM CHLORIDE RIDER 10 MEQ in PREMIX 1 EACH IV PRN (12:08)
[2017-10-07] MEDS: MULTIVITAMIN LIQUID (CENTRUM) 60 ML BOTTLE PEG SCH (12:10)
[2017-10-07] MEDS ORDERED: GLUCAGON 1 MG VIAL IM PRN (12:20)
[2017-10-07] MEDS ORDERED: DEXTROSE 50% 25 GM/50 ML VIAL IV PRN (12:20)
[2017-10-07] MEDS ORDERED: INSULIN LISPRO 100 UNIT/ML SUBCUT ONE (12:25)
[2017-10-07] MEDS: ACETAMINOPHEN 325 MG/10.15 ML UDCUP PEG PRN (12:53)
[2017-10-07] MEDS: LORazepam 2 MG/1 ML VIAL IV PRN ×5 (15:05→22:34)
[2017-10-07 16:05] LABS: Calcium 7.9 MG/DL (8.5-10.1); Osmolality,Calculated 306.7 MOS/KG (273-304); Potassium 3.9 MMOL/L (3.5-5.1)
[2017-10-07] MEDS: MORPHINE 4 MG/1 ML VIAL IV PRN ×5 (17:34→22:33)
[2017-10-07] MEDS: INSULIN LISPRO 100 UNIT/ML SUBCUT SCH ×2 (18:04→23:22)
[2017-10-07] MEDS: clonazePAM 0.5 MG TABLET PEG SCH (21:32)
[2017-10-07] MEDS: ENOXAPARIN 40 MG/0.4 ML SYRINGE SUBCUT SCH (21:32)
[2017-10-07] MEDS: FLUCONAZOLE INJ 400 MG in PREMIX 1 EACH IV SCH (21:33)
[2017-10-08] MEDS: LORazepam 2 MG/1 ML VIAL IV PRN ×3 (00:33→06:18)
[2017-10-08] MEDS: MORPHINE 4 MG/1 ML VIAL IV PRN ×7 (00:33→22:19)
[2017-10-08] MEDS: NAFCILLIN 2,000 MG in SODIUM CHLORIDE 0.9% 100 ML IV SCH ×2 (02:04→07:18)
[2017-10-08] MEDS: HYDROCORTISONE 100 MG VIAL IV SCH (02:46)
[2017-10-08 04:40] LABS: Basophils % 0.4 % (0.0-0.8); Eosinophils # 0.1 10*3/uL (0.0-0.87); Eosinophils % 0.7 % (0.00-10.9); Hematocrit 23.3 VOL% (42.0-52.0); Hemoglobin 6.7 GM/DL (14.0-18.0); Immature Granulocytes % 0.4 %; Immature Granulocytes Absolute 0.03 #; Lymphocytes # 3.2 10*3/uL (1.4-4.0); Lymphocytes % 38.4 % (21.2-54.2); Mean Corpuscular HGB Conc 28.8 GM/DL (32-36); Mean Corpuscular Hemoglobin 27 PG (27-34); Mean Corpuscular Volume 92.1 FL (87-102); Mean Platelet Volume 13.3 FL (9.6-12.0); Monocytes # 0.5 10*3/uL (0.11-0.8); Monocytes % 5.7 % (1.7-12.7); NRBC # 0.02 10*3/uL; Neutrophils # 4.5 10*3/uL (1.4-7.4); Neutrophils % 54.4 % (38.7-73.9); Platelet Count 115 T/CUMM (130-400); Red Blood Count 2.53 MC/CUMM (3.8-5.5); Red Cell Distribution Width 18.3 % (9.3-17.3); White Blood Count 8.2 T/CUMM (4-12)
[2017-10-08 05:06] LABS: Osmolality,Calculated 303.6 MOS/KG (273-304); Potassium 4.3 MMOL/L (3.5-5.1)
[2017-10-08 05:11] LABS: Hypochromasia 1+; Microcytosis Slight; Platelet Estimate Normal
[2017-10-08] MEDS: INSULIN LISPRO 100 UNIT/ML SUBCUT SCH (05:21)
[2017-10-08] MEDS ORDERED: fentaNYL INJ 1,250 MCG in SODIUM CHLORIDE 0.9% 225 ML IV PRN (07:19)
[2017-10-08] MEDS: LORazepam INJ 40 MG in DEXTROSE 5% 30 ML IV SCH ×2 (07:52→22:14)
[2017-10-09] MEDS: MORPHINE 4 MG/1 ML VIAL IV PRN ×4 (02:08→15:54)
[2017-10-09] MEDS: LORazepam INJ 40 MG in DEXTROSE 5% 30 ML IV SCH (11:28)
[2017-10-09 16:35] VITALS: BP 112/67
== END 2017-10-09 18:35 | disposition hospice, inpatient (51) | DRG 474 ==
LOC: EDUNIT# → EDBD → N.ED 11:59 → SUATTDRO 13:25 → N.EDINP 13:25 → N.3E 15:04 → N.CC 10-06 17:23
PROVIDERS: ADMIT Internal Medicine Infectious Disease; ATTEND Family Medicine